=== PATIENT | male | born 1945 | race Caucasian/White ===

== ENCOUNTER 2017-05-17 06:59 | Day surgery (SDC) | payer MEDICARE ==
[~2017-05-17] VITALS: Ht 172.7 cm; Wt 71.7 kg
[~2017-05-17 06:59] MED LIST: /ESOM40CA; ACET500C; AMLO5TAB2 PO; ASPI1TAB PO; ASPI325T; ATOR40TA75 PO; CIPR500T19; DARV100T; FLAG250T; MULT1TAB10 PO; OMEP40CA2 PO; PROC10TA PO; PROCHLORPERAZINE; VICOBULK PO; VITA500T3 PO; [UNRECOGNIZED DRUG - REMARK]
[2017-05-17] MEDS ORDERED: NS 1,000 ML IV ONE (08:00)
[2017-05-17] MEDS ORDERED: LIDOCAINE 2% INJ 100 MG/5 ML SDV (FOR ANES.) As Ordered ONE (08:00)
[2017-05-17] MEDS ORDERED: PROPOFOL 200 MG/20 ML VIAL As Ordered ONE ×2 (08:00→08:58)
--- NOTE | 2017-05-17 08:35 | ROOR ---
Patient Name: Juan Bowens Procedure Date: 05/17/2017 8:17 AM Date of : 1945 Age: 72 Room: [facility] Gender: Male Note Status: Finalized Procedure: Upper GI endoscopy Indications: Suspected esophageal reflux Providers: Sanjiv Gray Jr, MD Referring MD: Omid Beebe Md Requesting Provider: Medicines: Propofol per Anesthesia Complications: No immediate complications. Procedure: Pre-Anesthesia Assessment: - Prior to the procedure, a History and Physical was performed, and patient medications and allergies were reviewed. The patient is competent. The risks and benefits of the procedure and the sedation options and risks were discussed with the patient. All questions were answered and informed consent was obtained. Patient identification and proposed procedure were verified by the physician and the nurse in the pre-procedure area and in the procedure room. Mental Status Examination: alert and oriented. Airway Examination: normal oropharyngeal airway and neck mobility. Respiratory Examination: clear to auscultation. CV Examination: normal. ASA Grade Assessment: II - A patient with mild systemic disease. After reviewing the risks and benefits, the patient was deemed in satisfactory condition to undergo the procedure. The anesthesia plan was to use moderate sedation / analgesia (conscious sedation). Immediately prior to administration of medications, the patient was re-assessed for adequacy to receive sedatives. The heart rate, respiratory rate, oxygen saturations, blood pressure, adequacy of pulmonary ventilation, and response to care were monitored throughout the procedure. The physical status of the patient was re-assessed after the procedure. The Endoscope was introduced through the mouth, and advanced to the second part of duodenum. The upper GI endoscopy was accomplished without difficulty. The patient tolerated the procedure well. Findings: The upper third of the esophagus, middle third of the esophagus and lower third of the esophagus were normal. A small hiatal hernia was present. The cardia, gastric fundus and gastric body were normal. Diffuse moderately erythematous mucosa without bleeding was found in the gastric antrum and in the prepyloric region of the stomach. Biopsies were taken with a cold forceps for histology. The duodenal bulb, first portion of the duodenum and second portion of the duodenum were normal. Impression: - Normal upper third of esophagus, middle third of esophagus and lower third of esophagus. - Small hiatal hernia. - Normal cardia, gastric fundus and gastric body. - Erythematous mucosa in the antrum and prepyloric region of the stomach. Biopsied. - Normal duodenal bulb, first portion of the duodenum and second portion of the duodenum. Recommendation: - Discharge patient to home (ambulatory). Sanjiv Gray MD Sanjiv Gray Jr, MD 05/17/2017 8:35:03 AM This report has been signed electronically. Number of Addenda: 0 Note Initiated On: 05/17/2017 8:17 AM Estimated Blood Loss: Estimated blood loss: none.
--- NOTE | 2017-05-17 08:54 | ROOR ---
Patient Name: Juan Bowens Procedure Date: 05/17/2017 8:18 AM Date of : 1945 Age: 72 Room: [facility] Gender: Male Note Status: Finalized Procedure: Colonoscopy Indications: High risk colon cancer surveillance: Personal history of colonic polyps Providers: Sanjiv Gray Jr, MD Referring MD: Omid Beebe Md Requesting Provider: Medicines: Propofol per Anesthesia Complications: No immediate complications. Procedure: Pre-Anesthesia Assessment: - Prior to the procedure, a History and Physical was performed, and patient medications and allergies were reviewed. The patient is competent. The risks and benefits of the procedure and the sedation options and risks were discussed with the patient. All questions were answered and informed consent was obtained. Patient identification and proposed procedure were verified by the physician and the nurse in the pre-procedure area and in the procedure room. Mental Status Examination: alert and oriented. Airway Examination: normal oropharyngeal airway and neck mobility. Respiratory Examination: clear to auscultation. CV Examination: normal. ASA Grade Assessment: II - A patient with mild systemic disease. After reviewing the risks and benefits, the patient was deemed in satisfactory condition to undergo the procedure. The anesthesia plan was to use moderate sedation / analgesia (conscious sedation). Immediately prior to administration of medications, the patient was re-assessed for adequacy to receive sedatives. The heart rate, respiratory rate, oxygen saturations, blood pressure, adequacy of pulmonary ventilation, and response to care were monitored throughout the procedure. The physical status of the patient was re-assessed after the procedure. The Colonoscope was introduced through the anus and advanced to the ileocecal valve. The colonoscopy was performed without difficulty. The patient tolerated the procedure well. Findings: Four polyps were found in the transverse colon and ascending colon. The polyps were diminutive in size. These polyps were removed with a hot snare. Resection and retrieval were complete. The rectum, cecum, appendiceal orifice, ileocecal valve and anastomosis appeared normal. Impression: - Four diminutive polyps in the transverse colon and in the ascending colon, removed with a hot snare. Resected and retrieved. - The rectum, cecum, appendiceal orifice, ileocecal valve and colonic anastomosis are normal. Recommendation: - Discharge patient to home (ambulatory). - Repeat colonoscopy in 5 years for surveillance. Sanjiv Gray MD Sanjiv Gray Jr, MD 05/17/2017 8:53:31 AM This report has been signed electronically. Number of Addenda: 0 Note Initiated On: 05/17/2017 8:18 AM Estimated Blood Loss: Estimated blood loss: none.
[2017-05-17 09:15] VITALS: BP 124/85
== END 2017-05-17 09:29 | disposition home or self-care (01) ==
LOC: M OPP 06:59
PROVIDERS: ATTEND Surgery
DX: Z12.11 Encounter for screening for malignant neoplasm of colon (principal); Z86.010 Personal history of colon polyps; D12.3 Benign neoplasm of transverse colon; D12.2 Benign neoplasm of ascending colon; Z98.0 Intestinal bypass and anastomosis status; K21.9 Gastro-esophageal reflux disease without esophagitis; K31.89 Other diseases of stomach and duodenum; K44.9 Diaphragmatic hernia without obstruction or gangrene; I10 Essential (primary) hypertension; E78.5 Hyperlipidemia, unspecified; Z87.19 Personal history of other diseases of the digestive system; R12 Heartburn; M19.90 Unspecified osteoarthritis, unspecified site; M54.9 Dorsalgia, unspecified; Z96.641 Presence of right artificial hip joint; Z88.5 Allergy status to narcotic agent; Z91.018 Allergy to other foods; Z91.013 Allergy to seafood; Z91.048 Other nonmedicinal substance allergy status; Z79.82 Long term (current) use of aspirin; Z79.899 Other long term (current) drug therapy

== ENCOUNTER → 2017-05-23 | Outpatient (CLI) | payer OTHER, MEDICARE ==
--- NOTE | 2017-05-30 18:15 | REP ---
PET/CT: History: Diagnosing other diseases of the spleen. Comparisons: Comparison is made with CT study of the abdomen from the [facility] in [place] dated November 28, 2016. This is reported as showing a low-density lesion in the spleen. This was not felt to be consistent with typical splenic hemangioma. Also reviewed are remote prior CT studies of the abdomen and pelvis from our facility dated October 01, 2014 and July 02, 2009. TECHNIQUE: 47 minutes following the intravenous injection of a 11.0 mCi dose of F-18 FDG, three-dimensional PET scintigraphy is acquired from the skull base to the proximal thighs. Triplanar noncontrast CT scanning is acquired through the same anatomic range for attenuation correction, and image registration with scan parameters optimized to minimize radiation exposure to the patient. PET scintigraphy and CT datasets were fused and displayed on a workstation with multiplanar and projection display capability. PET/CT Findings: There is no discernible hypermetabolic uptake within the spleen. The low density lesion seen on CT is visualized although ill-defined. No abnormal FDG accumulation is seen. No abnormal hypermetabolic uptake is seen within the liver. There are low-density liver lesions consistent with cysts. No abnormal adrenal hypermetabolic uptake is seen. No abnormal uptake is seen within the abdomen or pelvis. No abnormal hypermetabolic uptake is seen in the thorax. Head and neck soft tissues are unremarkable. No abnormal pulmonary parenchymal uptake is seen. No abnormal skeletal uptake is observed. On review of the prior CT studies I find that the splenic lesion was preexisting. It measured 7 mm and was fairly sharply circumscribed in June of 2009. On the CT study from October 01, 2014, the lesion measures 2.4 cm. On the most recent CT of November 28, 2016 it measures 1.9 cm to my measurement. It is most conspicuous on postcontrast images and is difficult to measure on today's noncontrast accompanying CT study. It does not appear larger and is probably smaller than it was on the October 01, 2014 study. This stability combined with lack of discernible FDG accumulation is consistent with a benign splenic lesion. Impression: Negative PET scintigraphy. No abnormal splenic uptake is seen. Splenic lesion seen on recent CT study is stable since 2014 and considered benign. No abnormal hypermetabolic uptake is seen. Signed by Samuel Taylor MD 05/31/2017 08:03 A
== END ==
LOC: M PLARAD 10:20
DX: D73.89 Other diseases of spleen (principal)
CPT/HCPCS: 78815; A9552

== ENCOUNTER → 2017-06-12 | Outpatient (REF) | payer MEDICARE ==
[2017-06-19 14:12] LABS: ACETYLCHOLINE RCPTOR BINDING A 7.26 nmol/L (0.00-0.24)
[2017-06-19 14:12] LABS: ACETYLCHOLINE RCPTOR BLOCK AB 43 % (0-25); ACETYLCHOLINE RCPTOR MODULATIN 47 % (0-20); ANTINUCLEAR ANTIBODIES DIRECT Negative (Negative); Lyme Disease IgG/IgM Antibodie <0.91 ISR (0.00-0.90); Lyme Disease IgM Ab Quantitati <0.80 index (0.00-0.79)
== END ==
LOC: M LAB REF 11:49
DX: R53.1 Weakness (principal)
CPT/HCPCS: 86038

== ENCOUNTER → 2017-07-03 | Outpatient (CLI) | payer MEDICARE ==
[~2017-07-03] MED LIST changes: -/ESOM40CA; -ACET500C; -AMLO5TAB2 PO; -ASPI1TAB PO; -ASPI325T; -ATOR40TA75 PO; -CIPR500T19; -DARV100T; -FLAG250T; +ISOVUE-370 76% 100ML VIAL (Q9967) As Ordered; -MULT1TAB10 PO; -OMEP40CA2 PO; -PROC10TA PO; -PROCHLORPERAZINE; -VICOBULK PO; -VITA500T3 PO; -[UNRECOGNIZED DRUG - REMARK]
== END ==
LOC: M RAD 09:11
DX: G70.01 Myasthenia gravis with (acute) exacerbation (principal); C37 Malignant neoplasm of thymus
CPT/HCPCS: Q9967

== ENCOUNTER 2018-11-14 18:34 | Inpatient (IN) | payer MEDICARE ==
[~2018-11-14] VITALS: Ht 172.7 cm; Wt 76.4 kg
[~2018-11-14 18:34] MED LIST changes: +ACET500C; +AMLO5TAB2 PO; +ASPI325T; +ASPI81TA26 PO; +ATOR40TA75 PO; +CIPR500T19; +DARV100T; +FLAG250T; -ISOVUE-370 76% 100ML VIAL (Q9967) As Ordered; +MULT1TAB10 PO; +NEXI1CAP3; +OMEP40CA2 PO; +PROC10TA4 PO; +PROCHLORPERAZINE; +VICOBULK PO; +VITA500T3 PO; +[UNRECOGNIZED DRUG - REMARK]
[2018-11-14] MEDS ORDERED: CELL500T PO (18:53)
[2018-11-14] MEDS ORDERED: PYRI60TA2 PO (18:53)
[2018-11-14 19:33] LABS: BASO % 0.4 % (0.0-1.0); EOS # 0.1 10^3/uL (0.0-0.50); EOS % 0.8 % (0.0-3.0); HEMATOCRIT 42.5 % (42.0-52.0); HEMOGLOBIN 14.6 g/dl (13.5-17.5); LYMPH # 0.7 10^3/uL (1.5-4.5); LYMPH % 7.5 % (24.0-44.0); MEAN CORPUSCULAR HEMOGLOBIN 31.3 pg (27.0-33.0); MEAN CORPUSCULAR HGB CONC 34.4 g/dl (32.0-36.5); MEAN CORPUSCULAR VOLUME 91.2 fl (80.0-96.0); MONO # 0.4 10^3/uL (0.0-0.8); MONO % 3.8 % (0.0-5.0); NEUTROPHILS # 8.4 10^3/uL (1.8-7.7); NEUTROPHILS % 87.2 % (36.0-66.0); PLATELET COUNT, AUTOMATED 162 10^3/uL (150-450); RED BLOOD COUNT 4.66 10^6/uL (4.30-6.10); WHITE BLOOD COUNT 9.6 10^3/uL (4.0-10.0)
[2018-11-14] MEDS ORDERED: NS 1,000 ML IV ONE (19:45)
[2018-11-14] MEDS ORDERED: ONDANSETRON 4MG/2ML VIAL (J2405) IV ONE (19:45)
[2018-11-14 19:53] LABS: CPK CREATINE PHOSPHOKINASE 137 U/L (39-308); MB/CK RELATIVE INDEX 1.68 (< OR =4); TROPONIN I < 0.02 NG/ML (< 0.10)
[2018-11-14 19:57] LABS: ALBUMIN 4.2 GM/DL (3.2-5.2); ALT/SGPT 31 U/L (12-78); BILIRUBIN,DIRECT 0.2 MG/DL (0.0-0.2); BILIRUBIN,TOTAL 0.7 MG/DL (0.2-1.0); BLOOD UREA NITROGEN 12 MG/DL (7-18); CALCIUM LEVEL 9.3 MG/DL (8.8-10.2); CARBON DIOXIDE LEVEL 24 MEQ/L (21-32); CHLORIDE LEVEL 107 MEQ/L (98-107); GLOMERULAR FILTRATION RATE > 60.0 (>42); GLUCOSE, FASTING 111 MG/DL (70-100); LIPASE 229 U/L (73-393); POTASSIUM SERUM 4.2 MEQ/L (3.5-5.1); SODIUM LEVEL 139 MEQ/L (136-145); TOTAL PROTEIN 6.5 GM/DL (6.4-8.2)
[2018-11-14] MEDS: GASTROGRAFIN SOLUTION 30ML (Q9963) PO SCH ×2 (21:08→21:26)
[2018-11-14] MEDS ORDERED: GASTROGRAFIN SOLUTION 30ML (Q9963) PO SCH (21:30)
[2018-11-14] MEDS ORDERED: ISOVUE-370 76% 100ML VIAL (Q9967) As Ordered ONE (22:05)
--- NOTE | 2018-11-15 00:32 | REPVR ---
EXAM: CT Abdomen and Pelvis With Contrast EXAM DATE/TIME: 11/14/2018 10:32 PM CLINICAL HISTORY: 73 years old, male; Abdominal pain; Localized; Left Lower Quadrant (LLQ); Additional Info: LLQ pain TECHNIQUE: Imaging protocol: Axial computed tomography images of the abdomen and pelvis with intravenous contrast. Coronal and sagittal reformatted images were created and reviewed. Radiation optimization: All CT scans at this facility use at least one of these dose optimization techniques: automated exposure control; mA and/or kV adjustment per patient size (includes targeted exams where dose is matched to clinical indication); or iterative reconstruction. Contrast material: ISOVUE 370; Contrast volume: 100 ml; Contrast route: IV; COMPARISON: CT ABD PELVIS WITH CONTRAST 10/01/2014 9:10 PM FINDINGS: Lungs: Dependent atelectasis in the lung. Coronary arteries: Mild coronary artery calcification. ABDOMEN: Liver: Multiple circumscribed hypodense lesions in the liver. Largest hepatic cyst measures 4.3 cm in the anterior right hepatic lobe. Gallbladder and bile ducts: Few gallstones in the gallbladder. No gallbladder wall thickening. No biliary ductal dilatation. Pancreas: Pancreatic duct measures 5 mm in diameter. No pancreatic mass evident. Spleen: No splenomegaly. Ill-defined hypodense lesion in the spleen measuring up to 1.5 cm in diameter. Adrenals: Normal. No mass. Kidneys and ureters: No hydronephrosis bilaterally. Circumscribed hypodense lesions in the lower pole of the left kidney measuring up to 1.6 cm. Smaller hypodense lesion in the lower pole of the right kidney. Stomach and bowel: Moderate stool in the colon. No abnormal bowel dilatation. No abnormal bowel wall thickening. Status post sigmoid colon resection. Colonic diverticulosis without diverticulitis. Appendix: Appendix is normal. PELVIS: Bladder: Unremarkable as visualized. Reproductive: Prostate is mildly enlarged. ABDOMEN and PELVIS: Intraperitoneal space: Normal. No free air. No significant fluid collection. Bones/joints: Mild degenerative spine. Stat as post right hip replacement. No acute fracture. Soft tissues: Unremarkable. Vasculature: Moderate atherosclerotic disease. No aortic aneurysm. Lymph nodes: Normal. No enlarged lymph nodes. IMPRESSION: 1. Moderate stool in the colon. 2. Colonic diverticulosis without diverticulitis. 3. Pancreatic ductal dilatation. No change from prior. 4. Bilateral renal cysts. No followup is necessary. 5. Hepatic cysts. No followup is necessary. 6. Ill-defined hypodense lesion in the spleen. Unchanged from prior. No followup is necessary. 7. Cholelithiasis without evidence of acute cholecystitis. Unchanged from prior. COMMENT: Consistent with the [employer]'s Incidental Findings Committee Report (J Am Jj Radiol 2010): Unless the patient's specific circumstances suggest otherwise, any liver lesion 0.5 cm or less, any cystic kidney lesion less than 1.0 cm, and/or any adrenal lesion 1.0 cm or less not otherwise characterized in this report as possessing suspicious or indeterminate imaging features is/are highly likely to be benign and do not require follow-up imaging or biopsy. Electronically signed by: Ne Salcido On 11/15/2018 00:32:05 AM
[2018-11-15 00:48] LABS: CPK CREATINE PHOSPHOKINASE 129 U/L (39-308); MB/CK RELATIVE INDEX 1.94 (< OR =4); TROPONIN I < 0.02 NG/ML (< 0.10)
[2018-11-15] MEDS ORDERED: DOBUTamine HCL 500,000 MCG in APPROPRIATE DILUENT 1 EA IV SCH (01:00)
--- NOTE | 2018-11-15 01:10 | REPVR ---
EXAM: XR Chest, 1 View EXAM DATE/TIME: 11/15/2018 12:29 AM CLINICAL HISTORY: 73 years old, male; Signs and Symptoms; Other: weakness, vomiting; Additional Info: syncope TECHNIQUE: Imaging protocol: XR of the chest, 1 view. COMPARISON: CT Chest with contrast 07/03/2017 9:55 AM FINDINGS: Tubes, catheters and devices: There are multiple overlying electrocardiograph leads. Lungs: No infiltrate. Pleural space: Unremarkable. No pleural effusion. No pneumothorax. Heart/Mediastinum: Unremarkable. No cardiomegaly. Bones/joints: Chronic fracture of the left clavicle. Status post left rotator cuff surgery. IMPRESSION: No acute infiltrate. Electronically signed by: Ne Salcido On 11/15/2018 01:10:22 AM
[2018-11-15] MEDS ORDERED: VITMTA PO (01:35)
[2018-11-15] MEDS ORDERED: OMEP-221 PO (01:35)
[2018-11-15] MEDS ORDERED: ROSU40TA3 PO (01:35)
[2018-11-15] MEDS ORDERED: AMLO5TAB6 PO (01:35)
[2018-11-15] MEDS ORDERED: ONDANSETRON 4MG/2ML VIAL (J2405) IV ONE (02:15)
[2018-11-15] MEDS ORDERED: NS 1,000 ML IV SCH (02:17)
[2018-11-15] MEDS ORDERED: ISOVUE-300 61% 50ML VIAL (Q9967) As Ordered ONE (03:14)
[2018-11-15] MEDS ORDERED: AMIODARONE 150MG/3ML INJ (J0282) As Ordered ONE (03:14)
[2018-11-15] MEDS ORDERED: LIDOCAINE 1% SDV INJ 30 ML VIAL As Ordered ONE (03:14)
[2018-11-15] MEDS ORDERED: MIDAZOLAM INJ 2 MG/2 ML VIAL (J2250) As Ordered ONE (03:36)
[2018-11-15] MEDS ORDERED: LIDOCAINE 2% INJ 100 MG/5 ML SDV (FOR ANES.) As Ordered ONE (03:37)
[2018-11-15] MEDS ORDERED: PROPOFOL 200 MG/20 ML VIAL As Ordered ONE ×3 (03:37→05:30)
[2018-11-15] MEDS ORDERED: fentaNYL 100 MCG/2 ML INJECTION (J3010) As Ordered ONE (03:37)
[2018-11-15] MEDS ORDERED: EPINEPHrine INJ 1 MG/ML 1ML AMP As Ordered ONE (03:37)
--- NOTE | 2018-11-15 03:53 | HPEPDOC ---
[facility] Medical History & Physical Date of Admission Nov 15, 2018 Date of Service: Nov 15, 2018 History and Physical CHIEF COMPLAINT: Nausea/vomiting HISTORY OF PRESENT ILLNESS: Patient is a 73-year-old male past medical history of myasthenia gravis, diverticulosis/diverticulitis, GERD presented to ER with complaints of nausea and left-sided abdominal pain. In ER, patient was found to have 2 episodes of pauses/asystole and developed light headedness. Patient reportedly has had episodes of passing out suddenly for a period of time. He denies any other complaints apart from having upset stomach and nausea. Denies any chest pain or SOB. PAST MEDICAL HISTORY: Refer to [facility] PAST SURGICAL HISTORY: R. hip replacement sinus surgery x2 L. hernia repair SOCIAL HISTORY: Social alcohol consumption. Denies tobacco or drug use. FAMILY HISTORY: Unknown ALLERGIES: Please see below. REVIEW OF SYSTEMS: 10 point review of system negative except as stated in HPI HOME MEDICATIONS: Please see below. PHYSICAL EXAMINATION: General: mild distress from nausea Eyes: Normal sclera, EOMI, ADAN HENT: Atraumatic, neck supple, moist mucous membranes Cardiovascular: Normal rate, normal rhythm. Pulmonary: Clear to auscultation b/l, no wheezing GI: Soft, nontender, nondistended Skin: Warm and dry Neuro: CN grossly intact. No focal deficits. Strengths equal b/l. Psych: oriented x 3 LABORATORY DATA: See below. IMAGING: Abdomen/pelvis CT- IMPRESSION: 1. Moderate stool in the colon. 2. Colonic diverticulosis without diverticulitis. 3. Pancreatic ductal dilatation. No change from prior. 4. Bilateral renal cysts. No followup is necessary. 5. Hepatic cysts. No followup is necessary. 6. Ill-defined hypodense lesion in the spleen. Unchanged from prior. No followup is necessary. 7. Cholelithiasis without evidence of acute cholecystitis. Unchanged from prior. CXR- IMPRESSION: No acute infiltrate. MICROBIOLOGY: Please see below. ASSESSMENT AND PLAN: 1. Pauses/Asystole - Multiple episodes of syncope at home, pauses noted in ER. - Evaluated by cardiology at bedside tonight. - Started on Dobutamine drip and to get pacer placement. - Monitor on telemetry. - f/u further cardio recommendations. - monitor and replace electrolytes. - Troponins negative x3. - Obtain ECHO. 2. Nausea w/ abdominal discomfort - Zofran PRN - reported history of GERD and has intermitent upset stomach. - CT scan noted, no acute findings. Moderate stool noted. DVT ppx: HSQ Code status: Full code Vital Signs Vital Signs Date Time Temp Pulse Resp B/P (MAP) Pulse Ox O2 Delivery O2 Flow Rate FiO2 11/15/18 03:20 95 18 134/63 (86) 99 Nasal Cannula 2.0 11/15/18 02:15 98.0 Laboratory Data Labs 24H Laboratory Tests 2 11/14/18 18:59: Urine Color YELLOW, Urine Appearance CLEAR, Urine pH 7.0, Urine Specific [place] 1.011, Urine Protein NEGATIVE, Urine Glucose (UA) NEGATIVE, Urine Ketones 1+H, Urine Blood NEGATIVE, Urine Nitrite NEGATIVE, Urine Bilirubin NEGATIVE, Urine Urobilinogen 0.2, Urine Leukocyte Esterase NEGATIVE, Urine WBC (Auto) 0, Urine RBC (Auto) 5H, Urine Hyaline Casts (Auto) 0, Urine Bacteria (Auto) NEGATIVE, Urine Squamous Epithelial Cells 0, Urine Mucus (Auto) SMALL, Urine Sperm (Auto) 11/14/18 19:20: Immature Granulocyte % (Auto) 0.3, White Blood Count 9.6, Red Blood Count 4.66, Hemoglobin 14.6, Hematocrit 42.5, Mean Corpuscular Volume 91.2, Mean Corpuscular Hemoglobin 31.3, Mean Corpuscular Hemoglobin Concent 34.4, Red Cell Distribution Width 12.4, Platelet Count 162, Neutrophils (%) (Auto) 87.2H, Lymphocytes (%) (Auto) 7.5L, Monocytes (%) (Auto) 3.8, Eosinophils (%) (Auto) 0.8, Basophils (%) (Auto) 0.4, Neutrophils # (Auto) 8.4H, Lymphocytes # (Auto) 0.7L, Monocytes # (Auto) 0.4, Eosinophils # (Auto) 0.1, Basophils # (Auto) 0.0, Nucleated Red Blood Cells % (auto) 0.0, Anion Gap 8, Glomerular Filtration Rate > 60.0, C alcium Level 9.3, Aspartate Amino Transf (AST/SGOT) 21, Alanine Aminotransferase (ALT/SGPT) 31, Alkaline Phosphatase 56, Total Bilirubin 0.7, Direct Bilirubin 0.2, Total Creatine Kinase 137, Creatine Kinase MB 2.0, Creatine Kinase MB Relative Index 1.68, Troponin I < 0.02, Total Protein 6.5, Albumin 4.2, Albumin/Globulin Ratio 1.83, Lipase 229 11/15/18 00:08: Total Creatine Kinase 129, Creatine Kinase MB 2.0, Creatine Kinase MB Relative Index 1.94, Troponin I < 0.02 CBC/BMP Laboratory Tests 11/14/18 19:20 Red Blood Count 4.66, Mean Corpuscular Volume 91.2, Mean Corpuscular Hemoglobin 31.3, Mean Corpuscular Hemoglobin Concent 34.4, Red Cell Distribution Width 12.4, Neutrophils (%) (Auto) 87.2 H, Lymphocytes (%) (Auto) 7.5 L, Monocytes (%) (Auto) 3.8, Eosinophils (%) (Auto) 0.8, Basophils (%) (Auto) 0.4, Neutrophils # (Auto) 8.4 H, Lymphocytes # (Auto) 0.7 L, Monocytes # (Auto) 0.4, Eosinophils # (Auto) 0.1, Basophils # (Auto) 0.0 Home Medications Scheduled Amlodipine Besylate (Amlodipine Besylate) 5 Mg Tablet, 5 MG PO DAILY 1200 Multivitamins (Thera M Plus Tablet) 1 Each Tablet, 1 TAB PO DAILY 1200 Mycophenolate Mofetil (Cellcept) 500 Mg Tablet, 1,000 MG PO BID 0600, 1500 Omeprazole (Omeprazole) 40 Mg Capsule.dr, 40 MG PO DAILY 1200 Pyridostigmine Phoenix (Pyridostigmine Phoenix) 60 Mg Tablet, 60 MG PO BID 0600, 1500 Rosuvastatin Calcium (Rosuvastatin Calcium) 40 Mg Tablet, 40 MG PO DAILY 1200 Scheduled PRN Prochlorperazine Maleate (Prochlorperazine Maleate) 10 Mg Tab, 10 MG PO Q6H PRN for NAUSEA Allergies Coded Allergies: WOOL (FABRIC) (Verified Allergy, Intermediate, RASH,PRURITIS, 09/11/06) codeine (Verified Allergy, Mild, lethargy, 11/14/18) FISH (Verified Allergy, Unknown, 09/11/06) Mushroom (Verified Allergy, Unknown, 09/11/06) SEAFOOD (Verified Allergy, Unknown, 05/09/17) A-FIB/CHADSVASC A-FIB History Current/History of A-Fib/PAF?: No ARRIETA,CANH T. MD Nov 15, 2018 03:53
[2018-11-15] MEDS ORDERED: ONDANSETRON 4MG/2ML VIAL (J2405) As Ordered ONE (04:19)
[2018-11-15] MEDS ORDERED: ceFAZolin 2 GM/D5W 50 ML IV BAG (J0690 PER 500MG) As Ordered ONE (04:21)
[2018-11-15] MEDS ORDERED: PROCHLORPERAZINE 5 MG TAB (S0183) PO PRN (04:30)
[2018-11-15] MEDS ORDERED: fentaNYL 100 MCG/2 ML INJECTION (J3010) IV PRN (06:00)
[2018-11-15] MEDS ORDERED: KETOROLAC TROMETHAMINE 10 MG TAB PO PRN (06:00)
[2018-11-15] MEDS ORDERED: LR 1,000 ML IV SCH (06:00)
[2018-11-15] MEDS ORDERED: PERCOCET 5MG/325MG TAB PO PRN (06:00)
[2018-11-15] MEDS ORDERED: ONDANSETRON 4MG/2ML VIAL (J2405) IV PRN (06:00)
[2018-11-15 06:27] VITALS: BP 160/76
[2018-11-15] MEDS: ACETAMINOPHEN TAB 650MG DOSE (2X325MG) PO PRN ×2 (06:40→22:51)
[2018-11-15] MEDS: MYCOPHENOLATE MOFETIL 250 MG CAP (J7517) PO SCH ×2 (07:07→16:26)
[2018-11-15] MEDS: PYRIDOSTIGMINE 60 MG TAB PO SCH ×2 (07:07→16:26)
--- NOTE | 2018-11-15 07:17 | RO ---
DATE OF PROCEDURE: 11/15/2018 IMPLANTATION OF PERMANENT DUAL CHAMBER PACEMAKER: IMPLANTING LASER BEAM CUTTER: Dr. Jaxon Frerara ANESTHESIOLOGIST: Dr. Pelaez PREOPERATIVE DIAGNOSIS: Recurrent near syncope / syncope - sinus arrest with cardiac arrest / asystole. POSTOPERATIVE DIAGNOSIS: Recurrent near syncope / syncope - sinus arrest with cardiac arrest / asystole. TYPE OF ANESTHESIA: Monitored local anesthesia. DESCRIPTION OF PROCEDURE: Following informed consent with the patient fasting having received Ancef 2 grams IV premedication, he was taken to the operating theater. Numerous skin electrodes were applied to facilitate continuous electrocardiographic monitoring. The left subclavian region was prepped and draped in usual fashion and the skin was infiltrated with 1% Xylocaine. The left axillary vein was catheterized using a micropuncture technique and the 5-cm linear incision was made several centimeters below and parallel to the left clavicle. Dissection was carried down to the level of pectoralis fascia and pocket was fashioned below the level of the incision line. Two bipolar screw-in active fixation steroid eluding pending pacing leads were then positioned to the right ventricular apex and high right atrium. Because of suboptimal pacing thresholds we actually had to reposition the right atrial lead six separate times prior to settling for the current location. Right ventricular lead ([employer] model number LPA 1200m/58 serial number [id number]) measurements were: Stimulation threshold 0.6, V / 0.4 ms/impedance 880 ohms. R-wave amplitude measured 23.2 mV. The atrial lead ([employer] model number IFF4079B/[id number], serial number [id number]) measurements were pacing threshold 2.8, V / 0.8 ms/impedance 542 ohms. The P-wave amplitude measured 1.9 small mV. There remained considerable injury current on his atrial lead and we are cautiously optimistic that this atrial pacing threshold will decrease in the next few hours. These leads were then secured in position with sleeves sutured at their insertion site. They were then connected to a dual-chamber pulse generator ([employer] model number [id number], serial number [id number]) and appropriate, DDD pacing was documented. This device is MRI compatible. The pacemaker was placed in the pocket and secured in position with a suture through the upper right-hand corner of the epoxy header. The subcutaneous tissues were approximated using a running chromic suture and skin was closed using kanu. A dry dressing was applied. The patient was returned to the recovery room in good condition. No apparent complications but more prolonged procedure in light of suboptimal right atrial sites for pacing. ESTIMATED BLOOD LOSS: 10 mL. Our plan is to monitor him on telemetry for the next 24 hours and he will receive an additional three doses of Ancef IV every 8 hours. We are still confident he will be able to be discharged tomorrow morning. His customary medications will be resumed at this time.
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
[2018-11-15 08:00] VITALS: BP 134/68
[2018-11-15] MEDS ORDERED: ENOXAPARIN 40 MG/0.4 ML SYRINGE (J1650) SC SCH (09:00)
[2018-11-15] MEDS: amLODIPine 5 MG TAB PO SCH ×2 (09:07→20:50)
--- NOTE | 2018-11-15 09:32 | REP ---
PORTABLE CHEST: AP portable view of the chest is performed and compared to prior exam of the same day. There has been placement of a left dual lead pace maker with atrial and ventricular leads apparently in good position. There is no pneumothorax. The remainder of the study is unchanged. Electronically Signed by Rajiv Christiansen MD 11/18/2018 05:02 P
[2018-11-15 12:00] VITALS: BP 139/65
[2018-11-15] MEDS: MULTIVITAMINS/MINERALS THERAP 1 TAB PO SCH (12:00)
[2018-11-15] MEDS ORDERED: amLODIPine 5 MG TAB PO SCH (12:00)
[2018-11-15] MEDS: PANTOPRAZOLE 40MG INJ (PROTONIX) (C9113) IV SCH (12:01)
[2018-11-15] MEDS: ROSUVASTATIN 10 MG TAB (CRESTOR) PO SCH (12:01)
[2018-11-15] MEDS: ceFAZolin SOD 1 GM in D5W MINI-BAG PLUS 50 ML IV SCH ×2 (12:01→20:51)
[2018-11-15 16:00] VITALS: BP 136/63
--- NOTE | 2018-11-15 19:44 | ECHO ---
DATE OF PROCEDURE: 11/15/2018 Date of : 1945 Age: 73 Gender: Male Height: 68 inches Weight: 167 pounds Body surface area: 1.9 meters squared Inpatient: Intensive care unit (ICU), room 3209 REFERRING PHYSICIAN: Dr. Miryam Dotson INDICATION: Syncope/abnormal EKG. MEASUREMENTS: 2D Measurements: RV: 3.8 cm LV: 5.3 cm Septum: 1.1 cm Posterior wall: 1.1 cm Aortic root: 3.7 cm LA: 3.9 cm LVEF: 65% Doppler Measurements: AV: 1.5 meters per second LVOT: 0.97 meters per second LVOT diameter: 2.1 cm MV-E: 62, A: 78, EA ratio: 0.8 Early mitral deceleration time: 239 milliseconds E prime: 5.9, A prime: 8.8, E/E prime ratio: 10.5 Pulmonary capillary wedge pressure: 13.5 mmHg PV: 0.8 meters per second Pulmonary artery acceleration time: 116 milliseconds RVSP: 32 mmHg IVC: 1.8 cm COMMENTS: Underlying atrially paced rhythm with spontaneous AV conduction and narrow QRS complexes. M-mode and two-dimensional echocardiography was performed with pulsed, continuous wave, color flow and tissue Doppler studies. Left ventricular wall thickness upper limits of normal with normal wall motion. Left atrial size upper limits of normal with Doppler evidence of an impairment of left ventricular (LV) diastolic function and current estimated mean left atrial pressure upper limits of normal. Normal right heart chamber sizes and motion with Doppler evidence of mild pulmonary hypertension. Mild aortic valvular sclerosis without stenosis yet mild-moderate insufficiency. Mild mitral annular calcification with very mild insufficiency. Normal appearing tricuspid valve with very mild insufficiency. Normal aortic root size. Pacing leads could be visualized traversing right heart structures but no other intracardiac mass. No pericardial effusion.
[2018-11-15 20:00] VITALS: BP 148/65
--- NOTE | 2018-11-15 20:17 | ECGEPIP ---
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 Pseudofusion (QRS complexes are related to spontaneous AV conduction). Pacer new from 11/14/18. Somewhat prominent precordial voltage with lateral ST/T-wave abnormalities probable LVH. Electronically Signed on 11-15-2018 20:16:50 EDT by Jaxon Ferrara
[2018-11-15 22:48] VITALS: BP 145/65
[2018-11-15] MEDS: ONDANSETRON 4MG/2ML VIAL (J2405) IV PRN (22:51)
[2018-11-16] VITALS (7 sets, daily range): BP systolic 124–151; BP diastolic 60–68
[2018-11-16] MEDS: ceFAZolin SOD 1 GM in D5W MINI-BAG PLUS 50 ML IV SCH (04:58)
[2018-11-16] MEDS: PYRIDOSTIGMINE 60 MG TAB PO SCH ×2 (05:02→14:11)
[2018-11-16] MEDS: MYCOPHENOLATE MOFETIL 250 MG CAP (J7517) PO SCH ×2 (05:02→14:10)
[2018-11-16 05:07] LABS: HEMOGLOBIN 13.4 g/dl (13.5-17.5); MEAN CORPUSCULAR HEMOGLOBIN 30.2 pg (27.0-33.0); MEAN CORPUSCULAR HGB CONC 33.5 g/dl (32.0-36.5); MEAN CORPUSCULAR VOLUME 90.1 fl (80.0-96.0); PLATELET COUNT, AUTOMATED 148 10^3/uL (150-450); RED BLOOD COUNT 4.44 10^6/uL (4.30-6.10); WHITE BLOOD COUNT 8.4 10^3/uL (4.0-10.0)
[2018-11-16 05:27] LABS: BLOOD UREA NITROGEN 17 MG/DL (7-18); CALCIUM LEVEL 8.2 MG/DL (8.8-10.2); CARBON DIOXIDE LEVEL 26 MEQ/L (21-32); CHLORIDE LEVEL 107 MEQ/L (98-107); CREATININE FOR GFR 0.89 MG/DL (0.70-1.30); GLOMERULAR FILTRATION RATE > 60.0 (>42); GLUCOSE, FASTING 112 MG/DL (70-100); SODIUM LEVEL 140 MEQ/L (136-145)
[2018-11-16] MEDS: amLODIPine 5 MG TAB PO SCH (08:14)
--- NOTE | 2018-11-16 08:18 | REP ---
Chest two views HISTORY: Pacemaker insertion Comparison: 11/15/2018 The lungs are clear. The heart is normal in size. The pulmonary vasculature is normal in appearance. The bony structure is intact. A cardiac pacemaker is present. IMPRESSION: No acute disease. Electronically Signed by Dylon Piper MD 11/16/2018 08:10 A
--- NOTE | 2018-11-16 08:20 | ECGEPIP ---
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
[2018-11-16] MEDS ORDERED: ASCORBIC ACID 250 MG TAB PO SCH (09:00)
--- NOTE | 2018-11-16 09:34 | ECGEPIP ---
[facility] - ED Test Date: 2018-11-15 Pat Name: MICHAEL RUSSELL Department: Room: [place] [address] Gender: Male Control Technician: NATANAEL : 1945 Requested By: AMPARO Rosas Order Number: [id number] Reading MD: Tiago Malhotra Measurements Intervals [place] Rate: 61 P: 46 NC: 158 QRS: 3 QRSD: 84 T: 72 QT: 382 QTc: 387 Interpretive Statements SINUS RHYTHM NONSPECIFIC T-WAVE ABNORMALITY Baseline artifact likley due to electrical device- previous tracing done 11-15-18 showed v-pacing with atrial tracking Electronically Signed on 11-16-2018 9:34:30 EDT by Tiago Malhotra
[2018-11-16] MEDS: ONDANSETRON 4MG/2ML VIAL (J2405) IV PRN (10:24)
[2018-11-16] MEDS: ROSUVASTATIN 10 MG TAB (CRESTOR) PO SCH (13:04)
[2018-11-16] MEDS: MULTIVITAMINS/MINERALS THERAP 1 TAB PO SCH (13:04)
[2018-11-16] MEDS: PANTOPRAZOLE 40MG INJ (PROTONIX) (C9113) IV SCH (13:04)
[2018-11-16] MEDS ORDERED: ACET-841 PO (13:18)
[2018-11-16] MEDS ORDERED: VITA1TAB23 PO (13:18)
[2018-11-16] MEDS ORDERED: KETO10TAB PO (13:19)
--- NOTE | 2018-11-18 12:41 | DS.PDOC ---
Discharge Summary General Date of Admission Nov 15, 2018 at 02:14 Date of Discharge 11/16/18 Discharge Summary PROCEDURES PERFORMED DURING STAY: PPM placement DISCHARGE DIAGNOSES: Presyncope and Syncopal episodes due to Recurrent episodes of sinus pauses and asystole PPM placement Viral GI infection / symptoms due to asystole Myasthenia gravis. Hypertension Hypercholesterolemia degenerative joint disease. COMPLICATIONS/CHIEF COMPLAINT: Cardiac Asystole. HISTORY OF PRESENT ILLNESS: Please see history and physical HOSPITAL COURSE: Patient is a 73-year-old male past medical history of myasthenia gravis, diverticulosis/diverticulitis, GERD, syncopal episodes for 20 years, presented to ER with complaints of nausea , dry heaves and left-sided abdominal pain. In ER, patient was found to have 2 episodes of sinus pauses/asystole and developed light headedness. Pauses/Asystole Multiple episodes of syncope at home, pauses noted in ER. Had dual chamber PPM placed on 11/15/18 Nausea w/ abdominal discomfort CT abdomen negative could be GERD or viral GI infection These symptoms could also be due to episodes of asystole these have resolved Myasthenia gravis continue home meds unfortunately patient cannot use [employer] with pacemaker. DISCHARGE MEDICATIONS: Please see below. ALLERGIES: Please see below. PHYSICAL EXAMINATION ON DISCHARGE: VITAL SIGNS: Please see below. General: mild distress from nausea Eyes: Normal sclera, EOMI, ADAN HENT: Atraumatic, neck supple, moist mucous membranes Cardiovascular: Normal rate, normal rhythm. Pulmonary: Clear to auscultation b/l, no wheezing GI: Soft, nontender, nondistended Skin: Warm and dry Neuro: CN grossly intact. No focal deficits. Strengths equal b/l. Psych: oriented x 3 LABORATORY DATA: Please see below. ACTIVITY: [As tolerated]. DIET: As tolerated DISCHARGE PLAN: Home DISCHARGE INSTRUCTIONS: Follow up with Dr Ferrara in 1 week for staple removal follow up with Dr ferrara in 1 month for pacemaker check. DISCHARGE CONDITION: [Stable]. TIME SPENT ON DISCHARGE: 45 minutes. Vital Signs/I&Os Vital Signs Date Time Temp Pulse Resp B/P (MAP) Pulse Ox O2 Delivery O2 Flow Rate FiO2 11/16/18 10:00 60 18 128/62 (84) 96 11/16/18 08:00 98.5 11/16/18 04:00 2.0 11/15/18 03:20 Nasal Cannula I&O- Last 24 Hours up to 6 AM 11/16/18 06:00 Intake Total 1540 ml Output Total 725 ml Balance 815 ml Laboratory Data Labs 24H Laboratory Tests 2 11/16/18 04:45: Nucleated Red Blood Cells % (auto) 0.0, Anion Gap 7L, Glomerular Filtration Rate > 60.0, Blood Urea Nitrogen 17, Creatinine 0.89, Sodium Level 140, Potassium Level 4.0, Chloride Level 107, Carbon Dioxide Level 26, Calcium Level 8.2L CBC/BMP Laboratory Tests 11/16/18 04:45 Red Blood Count 4.44, Mean Corpuscular Volume 90.1, Mean Corpuscular Hemoglobin 30.2, Mean Corpuscular Hemoglobin Concent 33.5, Red Cell Distribution Width 12.3, Calcium Level 8.2 L Discharge Medications Scheduled Amlodipine Besylate (Amlodipine Besylate) 5 Mg Tablet, 5 MG PO DAILY, (Reported) 1200 Ascorbic Acid (Vitamin C) 250 Mg Tablet, 250 MG PO BID Multivitamins (Thera M Plus Tablet) 1 Each Tablet, 1 TAB PO DAILY, (Reported) 1200 Mycophenolate Mofetil (Cellcept) 500 Mg Tablet, 1,000 MG PO BID, (Reported) 0600, 1500 Omeprazole (Omeprazole) 40 Mg Capsule.dr, 40 MG PO DAILY, (Reported) 1200 Pyridostigmine [place] (Pyridostigmine [place]) 60 Mg Tablet, 60 MG PO BID, (Reported) 0600, 1500 Rosuvastatin Calcium (Rosuvastatin Calcium) 40 Mg Tablet, 40 MG PO DAILY, (Reported) 1200 Scheduled PRN Acetaminophen (Acetaminophen) 500 Mg Tablet, 1,000 MG PO TIDP PRN for PAIN Ketorolac Tromethamine (Ketorolac Tromethamine) 10 Mg Tablet, 10 MG PO Q6H PRN for PAIN Prochlorperazine Maleate (Prochlorperazine Maleate) 10 Mg Tab, 10 MG PO Q6H PRN for NAUSEA, (Reported) Allergies Coded Allergies: WOOL (FABRIC) (Verified Allergy, Intermediate, RASH,PRURITIS, 09/11/06) codeine (Verified Allergy, Mild, lethargy, 11/14/18) FISH (Verified Allergy, Unknown, 09/11/06) Mushroom (Verified Allergy, Unknown, 09/11/06) SEAFOOD (Verified Allergy, Unknown, 05/09/17) TERRY BALTAZAR MD Nov 16, 2018 11:57
== END 2018-11-16 15:07 | disposition home or self-care (01) | DRG 244 ==
LOC: M ED 18:34 → M ED INP 11-15 02:14 → M ICU 11-15 06:26
PROVIDERS: ADMIT Student in an Organized Health Care Education/Training Program; ATTEND Internal Medicine Nephrology
PROC: 0JH606Z Insertion of Pacemaker, Dual Chamber into Chest Subcutaneous Tissue and Fascia, Open Approach (ICD-10-PCS; 2018-11-15)
PROC: 02HK3JZ Insertion of Pacemaker Lead into Right Ventricle, Percutaneous Approach (ICD-10-PCS; 2018-11-15)
PROC: 02H63JZ Insertion of Pacemaker Lead into Right Atrium, Percutaneous Approach (ICD-10-PCS; principal; 2018-11-15 02:05)
DX: I46.9 Cardiac arrest, cause unspecified (principal); G70.00 Myasthenia gravis without (acute) exacerbation; I11.9 Hypertensive heart disease without heart failure; E78.00 Pure hypercholesterolemia, unspecified; K21.9 Gastro-esophageal reflux disease without esophagitis; K57.30 Diverticulosis of large intestine without perforation or abscess without bleeding; Z79.899 Other long term (current) drug therapy; Z88.5 Allergy status to narcotic agent; Z91.013 Allergy to seafood; Z91.018 Allergy to other foods; Z96.641 Presence of right artificial hip joint

== ENCOUNTER 2018-12-31 15:49 | Emergency (ER) | payer MEDICARE, OTHER ==
[~2018-12-31] VITALS: Ht 172.7 cm; Wt 76.4 kg
[~2018-12-31 15:49] MED LIST changes: +ACET-841 PO; +AMLO5TAB6 PO; +CELL500T PO; +CYAN500T8 PO; +KETO10TAB PO; +OMEP-221 PO; +PYRI60TA2 PO; +ROSU40TA4 PO; +VITA1TAB23 PO; -VITA500T3 PO; +VITMTA PO
[2018-12-31] MEDS ORDERED: HYDR5CR TOP (16:02)
[2018-12-31] MEDS ORDERED: ATOR40TA75 PO (16:02)
[2018-12-31 16:16] LABS: BASO # 0.1 10^3/uL (0.0-0.2); BASO % 0.8 % (0.0-1.0); EOS # 0.2 10^3/uL (0.0-0.50); EOS % 2.4 % (0.0-3.0); HEMATOCRIT 41.2 % (42.0-52.0); HEMOGLOBIN 13.7 g/dl (13.5-17.5); LYMPH # 1.1 10^3/uL (1.5-4.5); LYMPH % 17.9 % (24.0-44.0); MEAN CORPUSCULAR HEMOGLOBIN 30.8 pg (27.0-33.0); MEAN CORPUSCULAR HGB CONC 33.3 g/dl (32.0-36.5); MEAN CORPUSCULAR VOLUME 92.6 fl (80.0-96.0); MONO # 0.5 10^3/uL (0.0-0.8); MONO % 8.4 % (0.0-5.0); NEUTROPHILS # 4.4 10^3/uL (1.8-7.7); NEUTROPHILS % 70.3 % (36.0-66.0); PLATELET COUNT, AUTOMATED 149 10^3/uL (150-450); RED BLOOD COUNT 4.45 10^6/uL (4.30-6.10); WHITE BLOOD COUNT 6.2 10^3/uL (4.0-10.0)
[2018-12-31 16:26] LABS: INR 1.01
[2018-12-31 16:27] LABS: PARTIAL THROMBOPLASTIN TIME 24.9 SECONDS (25.0-38.4)
--- NOTE | 2018-12-31 16:54 | REP ---
HISTORY: Chest pain. COMPARISON: 11/16/2018, a two-view examination. The technique utilized in obtaining the radiograph has magnified the cardiac silhouette and accentuated the interstitial markings. There is a dual chamber bipolar pacemaker device, status quo. The cardiac silhouette is magnified by technique. The lung owen are clear and the pleural angles are sharp. The osseous structures are stable and intact. IMPRESSION: No acute cardiopulmonary disease. There is evidence of cardiomegaly. Electronically Signed by Juan Sheridan DO 01/01/2019 04:19 P
[2018-12-31 16:58] LABS: BLOOD UREA NITROGEN 17 MG/DL (7-18); CALCIUM LEVEL 9.1 MG/DL (8.8-10.2); CARBON DIOXIDE LEVEL 28 MEQ/L (21-32); CHLORIDE LEVEL 110 MEQ/L (98-107); CK-MB VALUE MASS 2.2 NG/ML (<3.6); CPK CREATINE PHOSPHOKINASE 124 U/L (39-308); CREATININE FOR GFR 1.18 MG/DL (0.70-1.30); GLOMERULAR FILTRATION RATE > 60.0 (>42); GLUCOSE, FASTING 98 MG/DL (70-100); MB/CK RELATIVE INDEX 1.77 (< OR =4); POTASSIUM SERUM 3.9 MEQ/L (3.5-5.1); SODIUM LEVEL 144 MEQ/L (136-145); TROPONIN I < 0.02 NG/ML (< 0.10)
[2018-12-31] MEDS ORDERED: ISOVUE-370 76% 100ML VIAL (Q9967) As Ordered ONE (17:27)
--- NOTE | 2018-12-31 18:36 | REPVR ---
EXAM: CT Angiography Chest With Contrast EXAM DATE/TIME: 12/31/2018 5:30 PM CLINICAL HISTORY: 73 years old, male; Chest pain; Additional info: Left chest pain, near syncope R/O pe TECHNIQUE: Imaging protocol: Axial computed tomographic angiography images of the chest with intravenous contrast using CT angiography protocol. Coronal and sagittal reformatted images were created and reviewed. 3D rendering: MIP reconstructed images were created and reviewed. Radiation optimization: All CT scans at this facility use at least one of these dose optimization techniques: automated exposure control; mA and/or kV adjustment per patient size (includes targeted exams where dose is matched to clinical indication); or iterative reconstruction. Contrast material: ISOVUE 370; Contrast volume: 75 ml; Contrast route: IV; COMPARISON: CT Chest with contrast 07/03/2017 9:55 AM FINDINGS: Pulmonary arteries: No focal pulmonary artery filling defect to suggest acute pulmonary embolus. Great vessels off aortic arch: Atherosclerotic calcifications in the coronary vessels. Aorta: Thoracic aorta is tortuous without focal aneurysm or dissection. Lungs: Pulmonary vascular/interstitial pattern does not suggest active pulmonary edema. No suspicious lung mass or air space process. No central endobronchial lesion. Pleural space: No pleural effusion or pneumothorax. Heart: No evidence of pericardial effusion. Mild cardiac enlargement. Liver: Right lobe 5 cm stable simple fluid density hepatic cyst. Spleen: Probable splenic hemangioma 15 mm in size, unchanged since the prior CT. Lymph nodes: No enlarged lymph nodes. Bones/joints: Bony structures show no acute fracture or destructive process. Remote deformities of the upper left ribs. Prior rotator cuff repair, left shoulder Soft tissues: Unremarkable. IMPRESSION: 1. No evidence of acute pulmonary embolus. 2. No other acute or concerning focal intrathoracic abnormality. Electronically signed by: Andrea Graves On 12/31/2018 18:35:30 PM
[2018-12-31 22:31] LABS: CPK CREATINE PHOSPHOKINASE 101 U/L (39-308); MB/CK RELATIVE INDEX 1.98 (< OR =4); TROPONIN I < 0.02 NG/ML (< 0.10)
[2018-12-31 23:15] VITALS: BP 155/70
--- NOTE | 2019-01-01 00:24 | ECGEPIP ---
[facility] [place] - ED Test Date: 2018-12-31 Pat Name: MICHAEL RUSSELL Department: Room: - Gender: Male Manager Commodities: JANEL : 1945 Requested By: TIAGO Adrian Order Number: [id number] Reading MD: Tiago Malhotra Measurements Intervals [place] Rate: 73 P: 64 MD: 162 QRS: 13 QRSD: 91 T: 87 QT: 384 QTc: 425 Interpretive Statements SINUS RHYTHM with one atrially paced beat Nonspecific T wave abnormality Artifact resolved from tracing done 11-15-18 Electronically Signed on 01-01-2019 0:24:29 EDT by Tiago Malhotra
--- NOTE | 2019-01-01 20:32 | ECGEPIP ---
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
== END 2018-12-31 23:35 | disposition home or self-care (01) ==
LOC: M ED 15:49
DX: R07.9 Chest pain, unspecified (principal); R00.1 Bradycardia, unspecified; R06.02 Shortness of breath; G70.00 Myasthenia gravis without (acute) exacerbation; I49.5 Sick sinus syndrome; K21.9 Gastro-esophageal reflux disease without esophagitis; G50.0 Trigeminal neuralgia; Z95.0 Presence of cardiac pacemaker; Z96.641 Presence of right artificial hip joint; Z88.5 Allergy status to narcotic agent; Z91.013 Allergy to seafood; Z91.018 Allergy to other foods; Z91.048 Other nonmedicinal substance allergy status; Z79.899 Other long term (current) drug therapy
CPT/HCPCS: 71045; 71275; 80048; 82550; 82553; 84484; 85025; 85610; 85730; 93005; 93041; 94760; 99285; Q9967

== ENCOUNTER 2019-06-20 15:58 | Observation (INO) | payer OTHER, MEDICARE ==
[~2019-06-20] VITALS: Ht 172.7 cm; Wt 74.8 kg
[~2019-06-20 15:58] MED LIST changes: +HYDR5CR TOP
[2019-06-20 16:35] LABS: BASO % 0.5 % (0.0-1.0); EOS # 0.1 10^3/uL (0.0-0.5); EOS % 1.4 % (0.0-3.0); HEMATOCRIT 43.7 % (42.0-52.0); HEMOGLOBIN 14.3 g/dl (13.5-17.5); LYMPH # 0.7 10^3/uL (1.5-5.0); LYMPH % 9.5 % (24.0-44.0); MEAN CORPUSCULAR HEMOGLOBIN 30.1 pg (27.0-33.0); MEAN CORPUSCULAR HGB CONC 32.7 g/dl (32.0-36.5); MONO # 0.6 10^3/uL (0.0-0.8); MONO % 7.8 % (0.0-5.0); NEUTROPHILS # 6.2 10^3/uL (1.5-8.5); NEUTROPHILS % 80.5 % (36.0-66.0); PLATELET COUNT, AUTOMATED 172 10^3/uL (150-450); RED BLOOD COUNT 4.75 10^6/uL (4.30-6.10); WHITE BLOOD COUNT 7.7 10^3/uL (4.0-10.0)
--- NOTE | 2019-06-20 16:43 | REP ---
Portable chest x-ray: Single view. History: Chest pain. Comparison chest x-ray: December 31, 2018. Findings: There is old post-traumatic deformity of the distal clavicle. There are orthopedic anchors in the left humeral head. A bipolar pacemaker is seen in the right heart via the left side. Monitoring electrodes are noted. Lungs are well inflated and clear. The pleural angles are sharp. Heart size is normal. Pulmonary vasculature is not increased. Impression: Pacemaker in place. No active disease. Electronically Signed by Samuel Taylor MD 06/20/2019 04:34 P
[2019-06-20] MEDS ORDERED: IBUP-1022 PO (16:49)
[2019-06-20] MEDS ORDERED: ROSU40TA4 (16:49)
[2019-06-20 17:06] LABS: ALBUMIN 4.3 GM/DL (3.2-5.2); ALT/SGPT 23 U/L (12-78); BILIRUBIN,DIRECT 0.3 MG/DL (0.0-0.2); BILIRUBIN,TOTAL 0.6 MG/DL (0.2-1.0); BLOOD UREA NITROGEN 20 MG/DL (7-18); CALCIUM LEVEL 9.5 MG/DL (8.8-10.2); CARBON DIOXIDE LEVEL 25 MEQ/L (21-32); CHLORIDE LEVEL 104 MEQ/L (98-107); CK-MB VALUE MASS 1.9 NG/ML (<3.6); CPK CREATINE PHOSPHOKINASE 129 U/L (39-308); CREATININE FOR GFR 1.04 MG/DL (0.70-1.30); FREE T4 1.23 NG/DL (0.76-1.46); GLOMERULAR FILTRATION RATE > 60.0 (>42); GLUCOSE, FASTING 103 MG/DL (70-100); LIPASE 230 U/L (73-393); MB/CK RELATIVE INDEX 1.47 (< OR =4); POTASSIUM SERUM 3.9 MEQ/L (3.5-5.1); SODIUM LEVEL 139 MEQ/L (136-145); TOTAL PROTEIN 6.6 GM/DL (6.4-8.2); TROPONIN I < 0.02 NG/ML (< 0.10)
--- NOTE | 2019-06-20 17:10 | REPVR ---
PROCEDURE INFORMATION: Exam: CT Head Without Contrast Exam date and time: 06/20/2019 4:57 PM Age: 74 years old Clinical indication: Other: High pitched sound assoc w near syncope TECHNIQUE: Imaging protocol: Computed tomography of the head without contrast. Radiation optimization: All CT scans at this facility use at least one of these dose optimization techniques: automated exposure control; mA and/or kV adjustment per patient size (includes targeted exams where dose is matched to clinical indication); or iterative reconstruction. COMPARISON: No relevant prior studies available. FINDINGS: Brain: Normal. No hemorrhage. Unremarkable white matter. No mass effect. Ventricles: Normal. No ventriculomegaly. Bones/joints: Unremarkable. No acute fracture. Sinuses: Visualized sinuses are unremarkable. No fluid levels. Mastoid air cells: Visualized mastoid air cells are well aerated. Soft tissues: Unremarkable. Vasculature: Atherosclerotic changes in the intracranial carotid arteries. IMPRESSION: No acute findings. Electronically signed by: Osmar Hussein On 06/20/2019 17:09:47 PM
[2019-06-20 17:16] LABS: INR 0.99; PROTHROMBIN TIME 12.8 SECONDS (11.8-14.0)
[2019-06-20 17:17] LABS: PARTIAL THROMBOPLASTIN TIME 25.8 SECONDS (25.0-38.4)
[2019-06-20] MEDS ORDERED: ATOR40TA75 PO (17:18)
[2019-06-20] MEDS ORDERED: ACET650T15 PO (17:18)
[2019-06-20] MEDS ORDERED: AMLO10TA5 PO (17:18)
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
[2019-06-20] MEDS ORDERED: PROCHLORPERAZINE 5 MG TAB (S0183) PO PRN (18:45)
[2019-06-20] MEDS ORDERED: ONDANSETRON 4MG/2ML VIAL (J2405) IV ONE (18:45)
[2019-06-20] MEDS ORDERED: ACETAMINOPHEN 650MG ER TAB (TYLENOL ARTHRITIS) PO PRN (18:45)
[2019-06-20] MEDS ORDERED: ISOVUE-370 76% 100ML VIAL (Q9967) As Ordered ONE (19:08)
--- NOTE | 2019-06-20 19:44 | REPVR ---
PROCEDURE INFORMATION: Exam: CT Angiography Neck With Contrast Exam date and time: 06/20/2019 7:18 PM Age: 74 years old Clinical indication: Syncope and collapse; Patient HX: No collapse TECHNIQUE: Imaging protocol: Computed tomography angiography of the neck with intravenous contrast. 3D rendering: MIP and/or 3D reconstructed images were created by the technologist. Radiation optimization: All CT scans at this facility use at least one of these dose optimization techniques: automated exposure control; mA and/or kV adjustment per patient size (includes targeted exams where dose is matched to clinical indication); or iterative reconstruction. Contrast material: ISOVUE 370; Contrast volume: 100 ml; Contrast route: IV; COMPARISON: PT PET/CT Skull/mid thigh 05/23/2017 11:31 AM FINDINGS: VASCULATURE: Right common carotid artery: Unremarkable. No stenosis. No dissection or occlusion. Right internal carotid artery: There is mild atherosclerotic changes in the proximal right ICA estimated at less than 50 % narrowing which is consistent with a mild stenosis using NASCET criteria. Right external carotid artery: Unremarkable. No occlusion or stenosis of the origin. Right vertebral artery: Unremarkable. No stenosis. No dissection or occlusion. Left common carotid artery: Unremarkable. No stenosis. No dissection or occlusion. Left internal carotid artery: There is mild atherosclerotic changes in the proximal left ICA estimated at less than 50 % narrowing which is consistent with a mild stenosis using NASCET criteria. Left external carotid artery: Unremarkable. No occlusion or stenosis of the origin. Left vertebral artery: Unremarkable. No stenosis. No dissection or occlusion. Subclavian arteries: Mild atherosclerotic changes at the origin of the left subclavian and brachiocephalic arteries without significant stenosis. Aorta: The aorta demonstrates mild atherosclerotic calcification. NECK: Bones/joints: Degenerative spondylosis cervical spine. Soft tissues: Normal. No significant soft tissue swelling. Other findings: Osteoporosis. IMPRESSION: 1. There is mild atherosclerotic changes in the proximal right ICA estimated at less than 50 % narrowing which is consistent with a mild stenosis using NASCET criteria. 2. There is mild atherosclerotic changes in the proximal left ICA estimated at less than 50 % narrowing which is consistent with a mild stenosis using NASCET criteria. 3. Right vertebral artery dominance. COMMENT: Reference per NASCET criteria for degree of stenosis: Mild: less than 50% stenosis. Moderate: 50-69% stenosis. Severe: 70-94% stenosis. Near occlusion: 95-99% stenosis. Electronically signed by: Osmar Hussein On 06/20/2019 19:44:37 PM
--- NOTE | 2019-06-20 19:48 | REPVR ---
PROCEDURE INFORMATION: Exam: CT Angiography Head With Contrast Exam date and time: 06/20/2019 7:18 PM Age: 74 years old Clinical indication: Syncope and collapse TECHNIQUE: Imaging protocol: Computed tomography angiography of the head with intravenous contrast. 3D rendering: MIP and/or 3D reconstructed images were created by the technologist. Radiation optimization: All CT scans at this facility use at least one of these dose optimization techniques: automated exposure control; mA and/or kV adjustment per patient size (includes targeted exams where dose is matched to clinical indication); or iterative reconstruction. Contrast material: ISOVUE 370; Contrast volume: 100 ml; Contrast route: IV; COMPARISON: CT Head without contrast 06/20/2019 4:55 PM FINDINGS: Right internal carotid artery: Atherosclerotic changes demonstrated in the right intracranial carotid artery. No significant stenosis. Right anterior cerebral artery: Unremarkable. No occlusion or significant stenosis. No aneurysm. Right middle cerebral artery: Unremarkable. No occlusion or significant stenosis. No aneurysm. Right posterior cerebral artery: Persistent circulation at the origin of the right posterior cerebral artery with small contribution from the basilar artery. Right vertebral artery: Unremarkable. No occlusion or significant stenosis. No aneurysm. Left internal carotid artery: Atherosclerotic changes demonstrated in the left intracranial carotid artery. No significant stenosis. Left anterior cerebral artery: Unremarkable. No occlusion or significant stenosis. No aneurysm. Left middle cerebral artery: Unremarkable. No occlusion or significant stenosis. No aneurysm. Left posterior cerebral artery: Unremarkable. No occlusion or significant stenosis. No aneurysm. Left vertebral artery: Unremarkable. No occlusion or significant stenosis. No aneurysm. Basilar artery: Unremarkable. No occlusion or significant stenosis. No aneurysm. IMPRESSION: 1. Atherosclerotic changes demonstrated in the right intracranial carotid artery. No significant stenosis. 2. Atherosclerotic changes demonstrated in the left intracranial carotid artery. No significant stenosis. 3. Otherwise unremarkable. Electronically signed by: Osmar Hussein On 06/20/2019 19:47:39 PM
[2019-06-20] MEDS: HEPARIN SOD (PORCINE) 5000 UNITS/ML VIAL SC SCH (20:08)
[2019-06-20] MEDS: IBUPROFEN 600 MG TAB PO SCH (20:09)
[2019-06-20 20:32] VITALS: BP 144/70
[2019-06-21 06:00] VITALS: BP 114/53
[2019-06-21] MEDS ORDERED: MYCOPHENOLATE MOFETIL 250 MG CAP (J7517) PO SCH (06:00)
[2019-06-21] MEDS ORDERED: PYRIDOSTIGMINE 60 MG TAB PO SCH (06:00)
[2019-06-21 06:43] LABS: HEMATOCRIT 43.1 % (42.0-52.0); MEAN CORPUSCULAR HEMOGLOBIN 29.7 pg (27.0-33.0); MEAN CORPUSCULAR HGB CONC 32.5 g/dl (32.0-36.5); MEAN CORPUSCULAR VOLUME 91.5 fl (80.0-96.0); PLATELET COUNT, AUTOMATED 171 10^3/uL (150-450); RED BLOOD COUNT 4.71 10^6/uL (4.30-6.10); WHITE BLOOD COUNT 7.1 10^3/uL (4.0-10.0)
[2019-06-21 07:08] LABS: BLOOD UREA NITROGEN 19 MG/DL (7-18); CARBON DIOXIDE LEVEL 25 MEQ/L (21-32); CHLORIDE LEVEL 104 MEQ/L (98-107); CREATININE FOR GFR 1.02 MG/DL (0.70-1.30); GLOMERULAR FILTRATION RATE > 60.0 (>42); GLUCOSE, FASTING 116 MG/DL (70-100); MAGNESIUM LEVEL 2.1 MG/DL (1.8-2.4); POTASSIUM SERUM 3.7 MEQ/L (3.5-5.1); SODIUM LEVEL 137 MEQ/L (136-145)
[2019-06-21] MEDS: HEPARIN SOD (PORCINE) 5000 UNITS/ML VIAL SC SCH (08:16)
[2019-06-21 08:18] VITALS: BP 131/60
[2019-06-21] MEDS: IBUPROFEN 600 MG TAB PO SCH (08:18)
[2019-06-21] MEDS ORDERED: amLODIPine 10 MG TAB PO SCH (09:00)
[2019-06-21] MEDS ORDERED: MULTIVITAMINS/MINERALS THERAP 1 TAB PO SCH (09:00)
[2019-06-21] MEDS ORDERED: ATORVASTATIN 20 MG TAB PO SCH (09:00)
--- NOTE | 2019-06-21 15:15 | ECHO ---
DATE OF PROCEDURE: 06/21/2019 REFERRING PHYSICIAN: Dr. Rutledge INDICATION: Syncope. HEIGHT: 173 cm. WEIGHT: 76 kg. DIMENSIONS: IV is 1.2 LV 5.6 LVPW 1.2 LA 4.0 Aorta 3.4 IVC 1.7 Mitral E wave velocity 80, A-wave 78 E prime septal 5.4 E prime lateral 8.2 FINDINGS: The study is of acceptable technical quality. The patient is in sinus bradycardia with ventricular rate between 50 and 55 beats per minute. Left ventricle is upper limits of normal size. Mild LVH is present. There is hyperdynamic LV systolic function, I estimate left ventricular ejection fraction of 65-70%. Right ventricle appears normal. Left atrium is borderline enlarged. Right atrium appears normal. Aortic valve has 3 cusps. There is minimal sclerosis but mobility is preserved. Mitral, tricuspid and pulmonic valves appear normal. No pericardial effusion is noted. Inferior vena cava is normal size. Aortic root is normal. Aortic arch and abdominal aorta were poorly visualized. Doppler interrogation of aortic valve reveals trivial stenosis with mean gradient 7 mmHg and approximately [id number] aortic insufficiency. The AI jet is oriented toward anterior mitral leaflet impairing mitral inflow pattern. There is no significant mitral stenosis but trace mitral insufficiency is present. There is trace tricuspid insufficiency. Calculated pulmonary artery pressure is approximately 30 mmHg corresponding to borderline pulmonary hypertension. Trace pulmonic insufficiency is also seen. Mitral inflow pattern and tissue Doppler imaging of mitral annulus reveal most likely grade 2 diastolic dysfunction, even though mitral inflow pattern is compromised by aortic insufficiency jet and consequently this should not be considered overly reliable. CONCLUSION: 1. Study is of good technical quality, the patient is in sinus bradycardia. 2. Normal LV size with mild LVH and hyperdynamic LV systolic function, estimated left ventricular ejection fraction around 65-70%. Probably grade 2 diastolic dysfunction. 3. [id number] aortic insufficiency. 4. No further significant valvular disease. 5. Likely normal central venous pressure and probably mild pulmonary hypertension COMMENTS: SBE prophylaxis is not recommended. No findings to explain syncopal event. MTDD
--- NOTE | 2019-06-21 16:08 | DS.PDOC ---
Discharge Summary General Date of Admission Jun 20, 2019 at 15:59 Date of Discharge 06/21/19 Discharge Summary PROCEDURES PERFORMED DURING STAY: [None]. ADMITTING DIAGNOSES: Near syncope Myasthenia gravis DISCHARGE DIAGNOSES: Near syncope Myasthenia gravis COMPLICATIONS/CHIEF COMPLAINT: Near Syncope. 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 Patient stated that today he developed 5 episodes of syncope associated with high-pitched sounds in his head, lightheadedness and weakness. He stated that he had this symptoms before but not such frequency. In ER patient was found to have white blood count of 7.7, hemoglobin 14.3, blood pressure of 159/70 with heart rate of 67. Patient stated that pacemaker evaluation was done recently a few weeks ago by Dr. Ferrara. HOSPITAL COURSE: During hospital stay CT head was negative, CT neck was negative for significant stenosis, echocardiogram did not reveal significant valves abnormalities. Most likely patient presentation associated with side effect of physostigmine. I will defer to adjust the dose of physostigmine to neurologist DISCHARGE MEDICATIONS: Please see below. ALLERGIES: Please see below. PHYSICAL EXAMINATION ON DISCHARGE: VITAL SIGNS: Please see below. Objective: VITAL SIGNS: Please see below. GENERAL APPEARANCE: Well-nourished, well-developed, not in apparent distress HEENT: Normocephalic, atraumatic. Mucous members moist and pink CARDIOVASCULAR: Regular rate and rhythm. No murmurs, rubs or gallops. Radial pulses are intact. There is no lower extremity edema LUNGS: Diminished lung sounds ABDOMEN: Abdomen is soft and nontender. MUSCULOSKELETAL: Range of motion is intact in all 4 extremities NEUROLOGICAL: Cranial nerves II-12 are grossly intact. Speech is not dysarthric LABORATORY DATA: Please see below. IMAGING: [facility] NAME: MICHAEL RUSSELL DATE OF : 1945 BUSINESS NUMBER: [id number] AGE: 74 SEX: M REPORT #: [id number] ROOM: [facility] IN TECHNOLOGIST: ISAAC DOCTOR: SEGUN CARLSON DO Ordered for Date&Time: 06/20/191905 cc: [~ rep ct ivnm] Service Date&Time: 06/20/191917 This report is in Signed status. Interpretation performed by [facility]. Thank you for having your radiology procedures performed at [facility] RADIOLOGY REPORT Date&Time printed: [~ rep prt dt last] [~ rep prt tm last] Page 2 of [address] [address] RADIOLOGY REPORT This report is in Signed status. Interpretation performed by [facility]. Thank you for having your radiology procedures performed at [facility] RADIOLOGY REPORT Date&Time printed: [~ rep prt dt last] [~ rep prt tm last] Page 1 of 2 PROCEDURE INFORMATION: Exam: CT Angiography Head With Contrast Exam date and time: 06/20/2019 7:18 PM Age: 74 years old Clinical indication: Syncope and collapse TECHNIQUE: Imaging protocol: Computed tomography angiography of the head with intravenous contrast. 3D rendering: MIP and/or 3D reconstructed images were created by the technologist. Radiation optimization: All CT scans at this facility use at least one of these dose optimization techniques: automated exposure control; mA and/or kV adjustment per patient size (includes targeted exams where dose is matched to clinical indication); or iterative reconstruction. Contrast material: ISOVUE 370; Contrast volume: 100 ml; Contrast route: IV; COMPARISON: CT Head without contrast 06/20/2019 4:55 PM FINDINGS: Right internal carotid artery: Atherosclerotic changes demonstrated in the right intracranial carotid artery. No significant stenosis. Right anterior cerebral artery: Unremarkable. No occlusion or significant stenosis. No aneurysm. Right middle cerebral artery: Unremarkable. No occlusion or significant stenosis. No aneurysm. Right posterior cerebral artery: Persistent circulation at the origin of the right posterior cerebral artery with small contribution from the basilar artery. Right vertebral artery: Unremarkable. No occlusion or significant stenosis. No aneurysm. Left internal carotid artery: Atherosclerotic changes demonstrated in the left intracranial carotid artery. No significant stenosis. Left anterior cerebral artery: Unremarkable. No occlusion or significant stenosis. No aneurysm. Left middle cerebral artery: Unremarkable. No occlusion or significant stenosis. No aneurysm. Left posterior cerebral artery: Unremarkable. No occlusion or significant stenosis. No aneurysm. Left vertebral artery: Unremarkable. No occlusion or significant stenosis. No aneurysm. Basilar artery: Unremarkable. No occlusion or significant stenosis. No aneurysm. IMPRESSION: 1. Atherosclerotic changes demonstrated in the right intracranial carotid artery. No significant stenosis. 2. Atherosclerotic changes demonstrated in the left intracranial carotid artery. No significant stenosis. 3. Otherwise unremarkable. Electronically signed by: Osmar Barroso On 06/20/2019 19:47:39 PM DD: OSMAR BARROSO MD 06/20/191917 DT: LADY 06/20/191946 DS: JAG 06/20/191946 [~ rep ct labl] INDICATION: Syncope. HEIGHT: 173 cm. WEIGHT: 76 kg. DIMENSIONS: IV is 1.2 LV 5.6 LVPW 1.2 LA 4.0 Aorta 3.4 IVC 1.7 Mitral E wave velocity 80, A-wave 78 E prime septal 5.4 E prime lateral 8.2 FINDINGS: The study is of acceptable technical quality. The patient is in sinus bradycardia with ventricular rate between 50 and 55 beats per minute. Left ventricle is upper limits of normal size. Mild LVH is present. There is hyperdynamic LV systolic function, I estimate left ventricular ejection fraction of 65-70%. Right ventricle appears normal. Left atrium is borderline enlarged. Right atrium appears normal. Aortic valve has 3 cusp. There is minimal sclerosis but mobility is preserved. Mitral tricuspid and pulmonic valves appear normal. No pericardial effusion is noted. Inferior vena cava is normal size. Aortic root is normal. Aortic arch and abdominal aorta were poorly visualized. Doppler interrogation of aortic valve reveals trivial stenosis with mean gradient 7 mmHg and approximately brja-va-jexoeces aortic insufficiency. The AI jet is crossing anterior mitral leaflet impairing mitral inflow pattern. There is no significant mitral stenosis but trace mitral insufficiency is present. There is trace tricuspid insufficiency. Calculated pulmonary artery pressure is approximately 30 mmHg corresponding to borderline pulmonary hypertension. Trace pulmonic insufficiency is also seen. Mitral inflow pattern and tissue Doppler imaging of mitral annulus reveal most likely grade 2 diastolic dysfunction, even though mitral inflow pattern is compromised by aortic insufficiency jet and consequently this should not be considered overly reliable. CONCLUSION: 1. Study is of good technical quality, the patient is in sinus bradycardia. 2. Normal LV size with mild LVH and hyperdynamic LV systolic function, estimated left ventricular ejection fraction around 65-70%. Probably grade 2 diastolic dysfunction. 3. [id number]-[id number] aortic insufficiency. 4. No further significant valvular disease. 5. Likely normal central venous pressure and probably mild pulmonary hypertension PROGNOSIS: Favorable ACTIVITY: [As tolerated]. DIET: Cardiac DISCHARGE PLAN: Home DISPOSITION: 01 Home, Self-Care. ITEMS TO FOLLOWUP ON ON OUTPATIENT: With neurologist DISCHARGE CONDITION: Stable TIME SPENT ON DISCHARGE: Greater than 20 minutes. Vital Signs/I&Os Vital Signs Date Time Temp Pulse Resp B/P (MAP) Pulse Ox O2 Delivery O2 Flow Rate FiO2 06/21/19 08:18 56 131/60 06/21/19 06:00 98.1 20 96 Room Air I&O- Last 24 Hours up to 6 AM 06/21/19 06:00 Intake Total 300 ml Output Total 140 ml Balance 160 ml Laboratory Data Labs 24H Laboratory Tests 2 06/20/19 16:22: Immature Granulocyte % (Auto) 0.3, Neutrophils (%) (Auto) 80.5H, Lymphocytes (%) (Auto) 9.5L, Monocytes (%) (Auto) 7.8H, Eosinophils (%) (Auto) 1.4, Basophils (%) (Auto) 0.5, Neutrophils # (Auto) 6.2, Lymphocytes # (Auto) 0.7L, Monocytes # (Auto) 0.6, Eosinophils # (Auto) 0.1, Basophils # (Auto) 0.0, Nucleated Red Blood Cells % (auto) 0.0, Prothrombin Time 12.8, Prothromb Time International Ratio 0.99, Activated Partial Thromboplast Time 25.8, Anion Gap 10, Glomerular Filtration Rate > 60.0, Calcium Level 9.5, Total Bilirubin 0.6, Direct Bilirubin 0.3H, Aspartate Amino Transf (AST/SGOT) 14, Alanine Aminotransferase (ALT/SGPT) 23, Alkaline Phosphatase 53, Total Creatine Kinase 129, Creatine Kinase MB 1.9, Creatine Kinase MB Relative Index 1.47, Troponin I < 0.02, Total Protein 6.6, Albumin 4.3, Albumin/Globulin Ratio 1.87, Lipase 230, Thyroid Stimulating Hormone (TSH) 1.150, Free Thyroxine 1.23 06/21/19 06:13: Anion Gap 8, Glomerular Filtration Rate > 60.0, Calcium Level 9.0, Magnesium Level 2.1 06/21/19 06:14: Nucleated Red Blood Cells % (auto) 0.0 CBC/BMP Laboratory Tests 06/20/19 16:22 06/21/19 06:13 06/21/19 06:14 Discharge Medications Scheduled Amlodipine Besylate (Amlodipine Besylate) 10 Mg Tablet, 10 MG PO DAILY, (Reported) Atorvastatin Calcium (Atorvastatin Calcium) 40 Mg Tablet, 40 MG PO DAILY, (Reported) Hydrocortisone (Hydrocortisone 0.5%) 28.35 Gm Cream..g., 1 APLCT TOP BID, (Reported) APPLY TO SIDES OF FACE Ibuprofen (Ibuprofen) 600 Mg Tablet, 600 MG PO TID, (Reported) Multivitamins (Thera M Plus Tablet) 1 Each Tablet, 1 TAB PO DAILY, (Reported) Mycophenolate Mofetil (Cellcept) 500 Mg Tablet, 1,000 MG PO BID, (Reported) 0600, 1500. LEAVE TWO HOURS IN BETWEEN THIS MEDICATION AND BREAKFAST Omeprazole (Omeprazole) 40 Mg Capsule.dr, 40 MG PO DAILY, (Reported) Pyridostigmine Modena (Pyridostigmine Modena) 60 Mg Tablet, 60 MG PO BID, (Reported) 0600, 1500. LEAVE 2 HOURS IN BETWEEN THIS MEDICATION AND BREAKFAST Scheduled PRN Acetaminophen (Acetaminophen ER) 650 Mg Tablet.er, 650 MG PO TID PRN for PAIN, (Reported) Prochlorperazine Maleate (Prochlorperazine Maleate) 10 Mg Tab, 10 MG PO Q6H PRN for NAUSEA, (Reported) Allergies Coded Allergies: WOOL (FABRIC) (Verified Allergy, Intermediate, RASH,PRURITIS, 09/11/06) codeine (Verified Allergy, Mild, lethargy, 11/14/18) FISH (Verified Allergy, Unknown, 09/11/06) Mushroom (Verified Allergy, Unknown, 09/11/06) SEAFOOD (Verified Allergy, Unknown, 05/09/17) SEGUN CARLSON DO Jun 21, 2019 16:08
--- NOTE | 2019-06-21 22:20 | ECGEPIP ---
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
== END 2019-06-21 11:35 | disposition home or self-care (01) ==
LOC: M ED 15:58 → M ED INP 15:59 → ENRESERV 18:39 → M MSPAV 19:32
PROVIDERS: ADMIT Internal Medicine; ATTEND Internal Medicine
DX: R55 Syncope and collapse (principal); G70.00 Myasthenia gravis without (acute) exacerbation; K21.9 Gastro-esophageal reflux disease without esophagitis; D50.9 Iron deficiency anemia, unspecified; Z95.0 Presence of cardiac pacemaker; Z79.899 Other long term (current) drug therapy; Z91.013 Allergy to seafood; Z88.5 Allergy status to narcotic agent; Z91.018 Allergy to other foods
CPT/HCPCS: 36415; 70450; 70496; 70498; 71045; 80048; 80076; 82550; 82553; 83690; 83735; 84439; 84443; 84484; 85025; 85027; 85610; 85730; 93005; 93041; 93306; 94760; 96372; 96374; 97161; 99285; G0378; J2405; J7517; Q9967

== ENCOUNTER 2019-08-01 07:36 | Day surgery (SDC) | payer OTHER ==
[~2019-08-01] VITALS: Ht 177.8 cm; Wt 76.2 kg
[~2019-08-01 07:36] MED LIST changes: +ACET650T15 PO; +AMLO10TA5 PO; +HYDR12.55 PO; +IBUP-1022 PO; +LIDOCAINE 1% MDV 20ML VIAL SQ PRN; +LR 1,000 ML IV ONE; +ROSU40TA4; +VITAD1000T PO; +ceFAZolin SOD 1 GM in D5W MINI-BAG PLUS 50 ML IV ONE
[2019-08-01] MEDS ORDERED: SCOPOLAMINE 1MG TRANSDERMAL PATCH TOP ONE (08:00)
[2019-08-01] MEDS ORDERED: BUPIVACAINE/EPIN 0.25% 30 ML VIAL As Ordered ONE (09:28)
[2019-08-01] MEDS ORDERED: ROCURONIUM BROMIDE 50 MG/5 ML VIAL As Ordered ONE (09:59)
[2019-08-01] MEDS ORDERED: ONDANSETRON 4MG/2ML VIAL (J2405) As Ordered ONE ×2 (09:59→11:54)
[2019-08-01] MEDS ORDERED: KETOROLAC 60 MG/2 ML VIAL (J1885) As Ordered ONE (09:59)
[2019-08-01] MEDS ORDERED: SUGAMMADEX SODIUM 500 MG/5 ML VIAL (BRIDION) As Ordered ONE (09:59)
[2019-08-01] MEDS ORDERED: LIDOCAINE 2% INJ 100 MG/5 ML SDV (FOR ANES.) As Ordered ONE (09:59)
[2019-08-01] MEDS ORDERED: dexameTHASONE 4 MG/ML 1ML VIAL (J1100) As Ordered ONE (09:59)
[2019-08-01] MEDS ORDERED: propofoL 200 MG/20 ML VIAL As Ordered ONE (09:59)
[2019-08-01] MEDS ORDERED: METOCLOPRAMIDE INJ 10MG/2ML VIAL (J2765) As Ordered ONE (09:59)
[2019-08-01] MEDS ORDERED: fentaNYL 250 MCG/5 ML INJECTION (J3010) As Ordered ONE (09:59)
[2019-08-01] MEDS ORDERED: MIDAZOLAM INJ 2 MG/2 ML VIAL (J2250) As Ordered ONE (09:59)
[2019-08-01] MEDS ORDERED: ACETAMINOPHEN 1000MG 100ML IV BTL (OFIRMEV) (J0131 PER 10MG) As Ordered ONE (10:41)
--- NOTE | 2019-08-01 11:36 | RO ---
DATE OF PROCEDURE: 08/01/2019 PREOPERATIVE DIAGNOSIS: Right inguinal hernia. POSTOPERATIVE DIAGNOSIS: Right inguinal hernia (indirect). PROCEDURE: Robotic-assisted laparoscopic right inguinal hernia repair with ProGrip mesh. SURGEON: Dr. Sanjiv Gray. SERVICE ATTENDANT CAFETERIA: STEFANI Richards providing instrument exchange, trocar placement and placement of mesh. ANESTHESIA: General endotracheal anesthesia. ESTIMATED BLOOD LOSS: Minimal. FLUIDS: Crystalloid. DESCRIPTION OF PROCEDURE: The patient was brought to the operating room and was given general anesthesia. After adequate anesthesia and preoperative antibiotics were given, the patient was prepped and draped in the usual sterile fashion. Next a supraumbilical incision was made with skin knife. Blunt dissection was carried down to fascia. Fascia was entered with Veress needle, insufflated to 15 mm of pressure and then an 8 mm trocar was placed at this time. Under direct visualization two lateral 8 mm trocars were placed. The patient was placed in Trendelenburg position. There was small bowel that was down into the inguinal canal with reduced nicely, but still was quite adherent right at the edge of the canal but it was all adherent such that there was not a internal hernia present. Thus, I decided not to take down this area instead mobilizing it all with the hernia sac itself. In any case, the camera was docked and the patient placed at 20 degrees of Trendelenburg and the peritoneum was taken down with the monopolar cut scissors. The peritoneal flap was created. This quite adherent medially and laterally still little bit as well. But taking down this very thin peritoneum, I was able to stay in the plane quite nicely and stay on the hernia sac and mobilize the hernia sac. After dissecting the hernia sac, and during this mobilization, it was apparent that there was probably the iliohypogastric or ilioinguinal nerve that was coming through the fascia and following this down medially. This was seen and preserved, was not transected and all the dissection that was performed was around this area leaving the nerve without palpation of the instruments. In any case, after all the hernia sac had been mobilized, which was quite adherent, the patient had a previous TEP repair and there was a lot of adhesions in the preperitoneal space and the right inguinal area had been evaluated previously over about 10 years ago. Given this previous surgery, there was a lot of adhesions that needed to be taken down in this preperitoneal space. In any case, after all this hernia sac was mobilized, there was a small lipoma in the cord that was mobilized transected at its base and then a ProGrip mesh was cut to the appropriate size, placed in the area, pressed into position with the peritoneal closure of #3-0 V-Loc. All trocars removed under direct visualization, #4-0 Vicryl was used to close all skin incisions. Steri-Strips and dry sterile dressing was applied. Patient was awakened, extubated, brought to recovery room awake, alert, hemodynamically stable. Sponge and needle counts correct times two.
[2019-08-01] MEDS ORDERED: fentaNYL 100 MCG/2 ML INJECTION (J3010) As Ordered ONE (11:54)
[2019-08-01] MEDS: fentaNYL 100 MCG/2 ML INJECTION (J3010) IV PRN ×3 (11:57→12:12)
[2019-08-01] MEDS ORDERED: METOCLOPRAMIDE INJ 10MG/2ML VIAL (J2765) IV PRN (12:00)
[2019-08-01] MEDS ORDERED: ONDANSETRON 4MG/2ML VIAL (J2405) IV PRN (12:00)
[2019-08-01] MEDS ORDERED: traMADol 50 MG TAB PO PRN (12:00)
[2019-08-01] MEDS ORDERED: PERCOCET 5MG/325MG TAB PO PRN (12:00)
[2019-08-01] MEDS ORDERED: HYDROMORPHONE HCL 0.5 MG/ 0.5 ML SYRINGE (J1170 PER 1) IV PRN (12:00)
[2019-08-01] MEDS ORDERED: LR 1,000 ML IV SCH ×2 (12:00→12:30)
[2019-08-01 14:21] VITALS: BP 153/70
== END 2019-08-01 14:45 | disposition home or self-care (01) ==
LOC: M SDC 07:36
PROVIDERS: ATTEND Surgery
DX: K40.91 Unilateral inguinal hernia, without obstruction or gangrene, recurrent (principal); D17.6 Benign lipomatous neoplasm of spermatic cord; I11.9 Hypertensive heart disease without heart failure; I77.810 Thoracic aortic ectasia; Z95.0 Presence of cardiac pacemaker; R94.31 Abnormal electrocardiogram [ECG] [EKG]; Z87.891 Personal history of nicotine dependence; G47.33 Obstructive sleep apnea (adult) (pediatric); M19.90 Unspecified osteoarthritis, unspecified site; K57.92 Diverticulitis of intestine, part unspecified, without perforation or abscess without bleeding; R51 Headache; G70.00 Myasthenia gravis without (acute) exacerbation; Z79.899 Other long term (current) drug therapy; Z88.5 Allergy status to narcotic agent; Z91.018 Allergy to other foods; Z91.013 Allergy to seafood; Z91.048 Other nonmedicinal substance allergy status
CPT/HCPCS: 49651; C1781; J0131; J0690; J1100; J1885; J2250; J2405; J2765; J3010

== ENCOUNTER → 2020-10-30 | Outpatient (CLI) | payer OTHER ==
[~2020-10-30] MED LIST changes: -AMLO10TA5 PO; +AMLO1TAB24 PO; +AMLO1TAB25 PO; -AMLO5TAB6 PO; +ASCO250T20 PO; +CYAN500T14 PO; -CYAN500T8 PO; +D31000TA2 PO; -LIDOCAINE 1% MDV 20ML VIAL SQ PRN; -LR 1,000 ML IV ONE; -VITA1TAB23 PO; -VITAD1000T PO; -ceFAZolin SOD 1 GM in D5W MINI-BAG PLUS 50 ML IV ONE
--- NOTE | 2020-10-30 14:02 | REP ---
INDICATION: SPINAL STENOSIS W/ NEUROGENIC CLAUDICATION. COMPARISON: Comparison is made with images from CT abdomen pelvis take in November 14, 2018.. TECHNIQUE: Helical scanning is performed through the lower thoracic and lumbar spine, T10 through S2. 4 mm axial images re-formatted. Coronal and sagittal MPR images are generated. FINDINGS: Lumbar vertebral body heights are preserved. Alignment is normal. There is a bone island in the left side of the pedicle of L4. This is unchanged in appearance from the 2019 study. Coronal images demonstrate a minimal dextroconvex curvature. There is no evidence of spondylolysis or spondylolisthesis. No significant extra vertebral abnormality is observed. There is some vascular calcification. Axial and sagittal images taken at L5-S1 show no evidence of spinal stenosis, disc protrusion, or foraminal narrowing. At L4-5, there is mild diffuse disc narrowing and mild diffuse disc bulging. No bony foraminal stenosis is seen. Canal size is borderline and somewhat triangular in configuration. There is minimal facet hypertrophy. At L3-4, there is mild diffuse disc bulging and disc space narrowing is seen. No focal disc protrusion is seen. No spinal stenosis or neural foraminal encroachment is seen. At L2-3, there is minimal diffuse disc bulging. No spinal stenosis or foraminal narrowing is seen. At the L1-2 disc level there is no disc abnormality. The visualized lower thoracic disc levels are unremarkable as well. IMPRESSION: Minimal degenerative disc changes. Borderline canal size at L4-5. <Electronically signed by Luis Taylor > 10/30/20 [id number]
== END ==
LOC: M RAD 13:27
PROVIDERS: ATTEND Psychiatry & Neurology Neurology
DX: M48.062 Spinal stenosis, lumbar region with neurogenic claudication (principal)

== ENCOUNTER → 2021-02-01 | Outpatient (CLI) | payer OTHER ==
--- NOTE | 2021-02-01 10:01 | REP ---
INDICATION: RUQ ABD PAIN COMPARISON: Abdominopelvic CT dated 11/14/2018 TECHNIQUE: Real time iqbal scale ultrasound examination using curved array transducer. FINDINGS: Liver demonstrates scattered simple and complex appearing cysts measuring up to approximately 5.2 cm in the right lobe and which appear to conform with findings on prior CT. Pancreas is incompletely evaluated due to interposed bowel gas. The gallbladder is normal and without gallstones, wall thickening, or pericholecystic fluid. No biliary ductal dilatation is appreciated and the common bile duct measures 8 mm diameter. Right kidney is normal in reniform shape without hydronephrosis and measures 9.2 x 5.2 x 4.6 cm. No ascites in the visualized right upper quadrant. IMPRESSION: 1. Simple and complex septated hepatic cysts up to 5.2 cm similar to findings on prior CT. 2. Relatively normal appearance to the gallbladder and biliary system by current ultrasound and the previously noted small gallstones are not identifiable. <Electronically signed by Pa Heath > 02/01/21 [id number]
== END ==
LOC: M RAD 09:12
PROVIDERS: ATTEND Internal Medicine
DX: K76.89 Other specified diseases of liver (principal); R10.10 Upper abdominal pain, unspecified

== ENCOUNTER 2021-05-18 18:02 | Emergency (ER) | payer MEDICARE, OTHER ==
[~2021-05-18] VITALS: Ht 172.7 cm; Wt 77.3 kg
[~2021-05-18 18:02] MED LIST changes: -OMEP-221 PO; +OMEP40CA5 PO; -PROC10TA4 PO; +PROC10TA5 PO
[2021-05-18 18:40] LABS: BASO # 0.1 10^3/uL (0.0-0.2); BASO % 0.6 % (0.0-1.0); EOS # 0.1 10^3/uL (0.0-0.5); EOS % 0.8 % (0.0-3.0); HEMATOCRIT 42.1 % (42.0-52.0); LYMPH # 0.7 10^3/uL (1.5-5.0); LYMPH % 6.1 % (24.0-44.0); MEAN CORPUSCULAR HEMOGLOBIN 30.3 pg (27.0-33.0); MEAN CORPUSCULAR HGB CONC 33.3 g/dl (32.0-36.5); MEAN CORPUSCULAR VOLUME 91.1 fl (80.0-96.0); MONO # 0.7 10^3/uL (0.0-0.8); MONO % 6.5 % (2.0-8.0); NEUTROPHILS # 9.4 10^3/uL (1.5-8.5); NEUTROPHILS % 85.5 % (36.0-66.0); PLATELET COUNT, AUTOMATED 141 10^3/uL (150-450); RED BLOOD COUNT 4.62 10^6/uL (4.30-6.10)
[2021-05-18 19:26] LABS: ALBUMIN 3.5 GM/DL (3.2-5.2); ALT/SGPT 22 U/L (12-78); BILIRUBIN,DIRECT 0.2 MG/DL (0.0-0.2); BILIRUBIN,TOTAL 0.5 MG/DL (0.2-1.0); BLOOD UREA NITROGEN 19 MG/DL (7-18); CALCIUM LEVEL 8.7 MG/DL (8.8-10.2); CARBON DIOXIDE LEVEL 24 MEQ/L (21-32); CHLORIDE LEVEL 107 MEQ/L (98-107); GLOMERULAR FILTRATION RATE > 60.0 (>42); GLUCOSE, FASTING 92 MG/DL (70-100); LIPASE 232 U/L (73-393); SODIUM LEVEL 138 MEQ/L (136-145); TOTAL PROTEIN 6.2 GM/DL (6.4-8.2)
[2021-05-18 19:27] LABS: POTASSIUM SERUM 4.5 MEQ/L (3.5-5.1)
[2021-05-18 21:33] VITALS: BP 141/67
== END 2021-05-18 21:58 | disposition home or self-care (01) ==
LOC: EDBD 18:02 → M ED 18:02
DX: R55 Syncope and collapse (principal); R11.2 Nausea with vomiting, unspecified; R00.1 Bradycardia, unspecified; K80.20 Calculus of gallbladder without cholecystitis without obstruction; N28.1 Cyst of kidney, acquired; K21.9 Gastro-esophageal reflux disease without esophagitis; K57.30 Diverticulosis of large intestine without perforation or abscess without bleeding; Z88.6 Allergy status to analgesic agent; Z88.8 Allergy status to other drugs, medicaments and biological substances; Z79.899 Other long term (current) drug therapy

== ENCOUNTER → 2021-06-13 | Outpatient (REF) | payer OTHER ==
[~2021-06-13] MED LIST changes: +OMEP-221 PO; -OMEP40CA5 PO; +PROC10TA4 PO; -PROC10TA5 PO
[2021-06-13 13:08] LABS: AMYLASE 113 U/L (25-115); LIPASE 296 U/L (73-393)
== END ==
LOC: M LAB REF 11:53
PROVIDERS: ATTEND Nurse Practitioner Adult Health
DX: R10.9 Unspecified abdominal pain (principal)

== ENCOUNTER → 2021-10-03 | Outpatient (CLI) | payer OTHER ==
[~2021-10-03] MED LIST changes: +ALEN70TA82 PO; -D31000TA2 PO; +DICL1GEL3 TOP; -OMEP-221 PO; +OMEP40CA5 PO; +POTA1TAB23 PO; -PROC10TA4 PO; +PROC10TA5 PO; +VITA100093 PO
== END ==
LOC: M LABSMTC 10:23
PROVIDERS: ATTEND Anesthesiology
DX: Z01.812 Encounter for preprocedural laboratory examination (principal); Z20.822 Contact with and (suspected) exposure to COVID-19

== ENCOUNTER 2021-10-07 08:41 | Day surgery (SDC) | payer OTHER ==
[~2021-10-07] VITALS: Ht 172.7 cm; Wt 74.1 kg
[~2021-10-07 08:41] MED LIST changes: +CEFUROXIME 1MG/0.1ML INTRACAMERAL INJ As Ordered ONE; +LIDOCAINE 1% SDV 5ML VIAL As Ordered ONE; +PROPARACAINE 0.5% OPHTH SOL 15ML OD ONE
[2021-10-07] MEDS: PHENYLEPHRINE 2.5% OPHTH SOL 2ML OD SCH ×3 (09:51→10:12)
[2021-10-07] MEDS: TROPICAMIDE 1% OPHTH SOLN 2ML OD SCH ×3 (09:52→10:12)
[2021-10-07] MEDS: OFLOXACIN 0.3 % (OCUFLOX) OPTH SOL 5ML OD SCH ×3 (09:52→10:12)
[2021-10-07] MEDS ORDERED: BSS IRR 500ML/OMIDRIA 4ML IRR BAG (OR ONLY) As Ordered ONE (10:12)
[2021-10-07] MEDS ORDERED: MIDAZOLAM INJ 2MG/2ML VIAL (J2250 PER 1MG) As Ordered ONE (10:50)
[2021-10-07] MEDS ORDERED: fentaNYL 100 MCG/2 ML INJECTION As Ordered ONE (10:50)
[2021-10-07] MEDS ORDERED: ONDANSETRON 4MG/2ML VIAL As Ordered ONE (10:52)
[2021-10-07 11:13] VITALS: BP 146/68
== END 2021-10-07 11:35 | disposition home or self-care (01) ==
LOC: M SDC 08:41
PROVIDERS: ATTEND Ophthalmology
DX: H25.11 Age-related nuclear cataract, right eye (principal); K21.9 Gastro-esophageal reflux disease without esophagitis; G70.00 Myasthenia gravis without (acute) exacerbation; I10 Essential (primary) hypertension; E78.5 Hyperlipidemia, unspecified; Z95.0 Presence of cardiac pacemaker; K57.92 Diverticulitis of intestine, part unspecified, without perforation or abscess without bleeding; Z91.013 Allergy to seafood; Z91.018 Allergy to other foods; Z88.5 Allergy status to narcotic agent; Z79.899 Other long term (current) drug therapy
CPT/HCPCS: 66984; J0697; J1097; J2250; J2405; J3010; V2632

== ENCOUNTER → 2021-10-31 | Outpatient (CLI) | payer OTHER ==
[~2021-10-31] MED LIST changes: -CEFUROXIME 1MG/0.1ML INTRACAMERAL INJ As Ordered ONE; -LIDOCAINE 1% SDV 5ML VIAL As Ordered ONE; -PROPARACAINE 0.5% OPHTH SOL 15ML OD ONE
== END ==
LOC: M LABSMTC 09:45
PROVIDERS: ATTEND Anesthesiology
DX: Z01.812 Encounter for preprocedural laboratory examination (principal)

== ENCOUNTER 2021-11-04 09:45 | Day surgery (SDC) | payer OTHER ==
[~2021-11-04] VITALS: Ht 172.7 cm; Wt 73.7 kg
[~2021-11-04 09:45] MED LIST changes: +BSS IRR 500ML/OMIDRIA 4ML IRR BAG (OR ONLY) As Ordered ONE; +CEFUROXIME 1MG/0.1ML INTRACAMERAL INJ As Ordered ONE; +INSULIN LISPRO (NovoLOG) PER UNIT SC PRN; +LIDOCAINE 1% SDV 5ML VIAL As Ordered ONE; +PROPARACAINE 0.5% OPHTH SOL 15ML OS ONE
[2021-11-04] MEDS ORDERED: fentaNYL 100 MCG/2 ML INJECTION As Ordered ONE (10:09)
[2021-11-04] MEDS ORDERED: MIDAZOLAM INJ 2MG/2ML VIAL (J2250 PER 1MG) As Ordered ONE (10:09)
[2021-11-04] MEDS ORDERED: INSULIN LISPRO (NovoLOG) PER UNIT SC PRN (10:20)
[2021-11-04] MEDS: PHENYLEPHRINE 2.5% OPHTH SOL 2ML OS SCH ×3 (10:49→11:03)
[2021-11-04] MEDS: TROPICAMIDE 1% OPHTH SOLN 2ML OS SCH ×3 (10:49→11:03)
[2021-11-04] MEDS: OFLOXACIN 0.3 % (OCUFLOX) OPTH SOL 5ML OS SCH ×3 (10:49→11:03)
[2021-11-04] MEDS ORDERED: ONDANSETRON 4MG/2ML VIAL As Ordered ONE (12:04)
[2021-11-04 13:05] VITALS: BP 146/76
== END 2021-11-04 13:10 | disposition home or self-care (01) ==
LOC: M SDC 09:45
PROVIDERS: ATTEND Ophthalmology
DX: H25.12 Age-related nuclear cataract, left eye (principal); I10 Essential (primary) hypertension; E78.5 Hyperlipidemia, unspecified; K57.92 Diverticulitis of intestine, part unspecified, without perforation or abscess without bleeding; Z88.5 Allergy status to narcotic agent; Z79.899 Other long term (current) drug therapy; K21.9 Gastro-esophageal reflux disease without esophagitis; G70.00 Myasthenia gravis without (acute) exacerbation; G47.33 Obstructive sleep apnea (adult) (pediatric); Z91.013 Allergy to seafood; Z91.018 Allergy to other foods
CPT/HCPCS: 66984; J0697; J1097; J2250; J2405; J3010; V2632

== ENCOUNTER → 2022-01-24 | Outpatient (REF) | payer OTHER ==
[~2022-01-24] MED LIST changes: -BSS IRR 500ML/OMIDRIA 4ML IRR BAG (OR ONLY) As Ordered ONE; -CEFUROXIME 1MG/0.1ML INTRACAMERAL INJ As Ordered ONE; -INSULIN LISPRO (NovoLOG) PER UNIT SC PRN; -LIDOCAINE 1% SDV 5ML VIAL As Ordered ONE; -PROPARACAINE 0.5% OPHTH SOL 15ML OS ONE
[2022-01-24 20:36] LABS: ALBUMIN 3.9 GM/DL (3.2-5.2); CREATININE FOR GFR 1.32 MG/DL (0.70-1.30); GLOMERULAR FILTRATION RATE 56.4 (>42); PHOSPHORUS LEVEL 2.9 MG/DL (2.5-4.9); POTASSIUM SERUM 4.2 MEQ/L (3.5-5.1)
== END ==
LOC: M WUC 19:23
PROVIDERS: ATTEND Physician Assistant
DX: J06.9 Acute upper respiratory infection, unspecified (principal); U07.1 COVID-19

== ENCOUNTER 2022-06-16 15:19 | Inpatient (IN) | payer OTHER ==
[~2022-06-16] VITALS: Ht 172.7 cm; Wt 75.5 kg
[2022-06-16 17:48] LABS: HEMATOCRIT 44.3 % (42.0-52.0); HEMOGLOBIN 14.2 g/dl (13.5-17.5); MEAN CORPUSCULAR HEMOGLOBIN 30.4 pg (27.0-33.0); MEAN CORPUSCULAR HGB CONC 32.1 g/dl (32.0-36.5); MEAN CORPUSCULAR VOLUME 94.9 fl (80.0-96.0); PLATELET COUNT, AUTOMATED 174 10^3/uL (150-450); RED BLOOD COUNT 4.67 10^6/uL (4.30-6.10); WHITE BLOOD COUNT 5.8 10^3/uL (4.0-10.0)
[2022-06-16 18:05] LABS: BLOOD UREA NITROGEN 20 MG/DL (9-23); CALCIUM LEVEL 9.4 MG/DL (8.3-10.6); CARBON DIOXIDE LEVEL 25 MMOL/L (20-31); CHLORIDE LEVEL 105 MMOL/L (98-107); DIGOXIN LEVEL 0.7 NG/ML (0.8-2.0); GLOMERULAR FILTRATION RATE > 60.0 (>42); GLUCOSE, FASTING 82 MG/DL (74-106); POTASSIUM SERUM 4.8 MMOL/L (3.5-5.1); SODIUM LEVEL 141 MMOL/L (136-145)
[2022-06-16] MEDS ORDERED: NS 1,000 ML IV ONE (19:45)
[2022-06-16] MEDS ORDERED: IMMUNE GLOBULIN IV SCH (22:40)
[2022-06-17] VITALS (11 sets, daily range): BP systolic 124–162; BP diastolic 56–73
[2022-06-17] MEDS ORDERED: IMMUNE GLOBULIN 10% 40 GM in IV 1 EA IV ONE ×2
[2022-06-17] MEDS ORDERED: IMMUNE GLOBULIN 10% 10 GM in IV 1 EA IV ONE ×2
[2022-06-17] MEDS ORDERED: FERR324T21 PO (00:09)
[2022-06-17] MEDS ORDERED: METO1TAB87 PO (00:09)
[2022-06-17] MEDS ORDERED: VITA100093 PO (00:09)
[2022-06-17] MEDS ORDERED: ELIQ5TAB PO (00:09)
[2022-06-17] MEDS ORDERED: DIGO0.123 PO (00:09)
[2022-06-17 00:11] LABS: RSV AMPLIFICATION NEGATIVE (NEGATIVE)
[2022-06-17] MEDS ORDERED: HYDR0.5C8 TOP (00:11)
[2022-06-17] MEDS ORDERED: HOME MED LIST COMPLETE! XX SCH (00:15)
[2022-06-17] MEDS ORDERED: hydrALAZINE 20MG/ML 1ML VIAL IV PRN (00:20)
[2022-06-17] MEDS ORDERED: IMMUNE GLOBULIN 10% 0 GM in IV 1 EA IV SCH (00:25)
[2022-06-17] MEDS: APIXABAN 5 MG TAB (ELIQUIS) PO SCH ×3 (01:13→21:49)
[2022-06-17] MEDS: MYCOPHENOLATE MOFETIL 250 MG CAP (J7517) PO SCH ×2 (06:12→14:15)
[2022-06-17] MEDS ORDERED: HYDROMORPHONE HCL 0.5 MG/ 0.5 ML SYRINGE IV ONE (08:15)
[2022-06-17] MEDS ORDERED: METOCLOPRAMIDE INJ 10MG/2ML VIAL IV ONE (08:30)
[2022-06-17] MEDS ORDERED: FIORICET TAB PO ONE (08:30)
[2022-06-17] MEDS: predniSONE 20 MG TAB PO SCH (08:34)
[2022-06-17] MEDS: DIGOXIN 0.125 MG TAB PO SCH (08:36)
[2022-06-17] MEDS ORDERED: KETOROLAC 30 MG/ML 1ML VIAL IV ONE (08:45)
[2022-06-17] MEDS: DICLOFENAC EPOLAMINE 1.3% PATCH TOP SCH ×2 (09:00→21:49)
[2022-06-17] MEDS ORDERED: MYCOPHENOLATE MOFETIL 250 MG CAP (J7517) PO SCH (09:00)
[2022-06-17] MEDS: PYRIDOSTIGMINE 60MG TABLET PO SCH ×4 (10:01→21:49)
[2022-06-17] MEDS: lisinopriL 5 MG TAB PO SCH ×2 (11:50→21:50)
[2022-06-18] VITALS (15 sets, daily range): BP systolic 122–164; BP diastolic 58–75
[2022-06-18] MEDS: MYCOPHENOLATE MOFETIL 250 MG CAP (J7517) PO SCH ×2 (05:41→14:59)
[2022-06-18 07:38] LABS: ALBUMIN 3.3 G/DL (3.2-5.2); ALKALINE PHOSPHATASE 55 U/L (46-116); ALT/SGPT 12 U/L (7.0-40); AST/SGOT 18 U/L (<34); BILIRUBIN,TOTAL 0.6 MG/DL (0.3-1.2); BLOOD UREA NITROGEN 27 MG/DL (9-23); CALCIUM LEVEL 8.9 MG/DL (8.3-10.6); CARBON DIOXIDE LEVEL 23 MMOL/L (20-31); CHLORIDE LEVEL 106 MMOL/L (98-107); CREATININE FOR GFR 1.22 MG/DL (0.70-1.30); GLOMERULAR FILTRATION RATE > 60.0 (>42); GLUCOSE, FASTING 100 MG/DL (74-106); POTASSIUM SERUM 4.2 MMOL/L (3.5-5.1); SODIUM LEVEL 138 MMOL/L (136-145); TOTAL PROTEIN 6.6 G/DL (5.7-8.2)
[2022-06-18 07:40] LABS: TOTAL 25(OH) VITAMIN D 45.5 NG/ML (20.0-100.0); VITAMIN B12 LEVEL 266 PG/ML (211-911)
[2022-06-18 07:42] LABS: CPK CREATINE PHOSPHOKINASE 70 U/L (46-171)
[2022-06-18] MEDS: DIGOXIN 0.125 MG TAB PO SCH (08:30)
[2022-06-18] MEDS: lisinopriL 5 MG TAB PO SCH ×2 (08:30→20:33)
[2022-06-18] MEDS: DICLOFENAC EPOLAMINE 1.3% PATCH TOP SCH ×2 (09:00→20:27)
[2022-06-18] MEDS: PYRIDOSTIGMINE 60MG TABLET PO SCH ×4 (09:22→20:26)
[2022-06-18] MEDS: APIXABAN 5 MG TAB (ELIQUIS) PO SCH ×2 (09:23→20:26)
[2022-06-18] MEDS: predniSONE 20 MG TAB PO SCH (09:23)
[2022-06-18] MEDS: IMMUNE GLOBULIN 10% 10 GM in IV 1 EA IV SCH (09:24)
[2022-06-18] MEDS: IMMUNE GLOBULIN 10% 40 GM in IV 1 EA IV SCH (11:12)
[2022-06-18] MEDS: CYANOCOBALAMIN 1,000MCG/ML 1ML VIAL IM SCH (13:53)
[2022-06-19] VITALS (12 sets, daily range): BP systolic 131–182; BP diastolic 62–81
[2022-06-19] MEDS: MYCOPHENOLATE MOFETIL 250 MG CAP (J7517) PO SCH ×2 (05:17→15:17)
[2022-06-19] MEDS ORDERED: predniSONE 10 MG TAB PO SCH (09:00)
[2022-06-19] MEDS: DIGOXIN 0.125 MG TAB PO SCH (09:00)
[2022-06-19] MEDS ORDERED: PYRI60TA2 PO (09:05)
[2022-06-19] MEDS ORDERED: PRED10TA2 PO (09:05)
[2022-06-19] MEDS ORDERED: B-12100010 PO (09:05)
[2022-06-19] MEDS ORDERED: PRED20TA PO (09:07)
[2022-06-19] MEDS: DICLOFENAC EPOLAMINE 1.3% PATCH TOP SCH (10:10)
[2022-06-19] MEDS: CYANOCOBALAMIN 1,000MCG/ML 1ML VIAL IM SCH (10:11)
[2022-06-19] MEDS: PYRIDOSTIGMINE 60MG TABLET PO SCH ×2 (10:11→13:13)
[2022-06-19] MEDS: APIXABAN 5 MG TAB (ELIQUIS) PO SCH (10:11)
[2022-06-19] MEDS: lisinopriL 5 MG TAB PO SCH (10:14)
[2022-06-19] MEDS: IMMUNE GLOBULIN 10% 40 GM in IV 1 EA IV SCH (11:06)
[2022-06-19] MEDS ORDERED: cloNIDine 0.1MG TABLET PO ONE (13:00)
[2022-06-19] MEDS ORDERED: lisinopriL 5 MG TAB PO ONE (14:00)
[2022-06-19] MEDS: IMMUNE GLOBULIN 10% 10 GM in IV 1 EA IV SCH (14:43)
[2022-06-19] MEDS ORDERED: LISI5TAB11 PO (15:04)
[2022-06-19] MEDS ORDERED: amLODIPine 5 MG TAB PO ONE (15:05)
[2022-06-19] MEDS ORDERED: SELF1KIT MC (15:05)
[2022-06-19] MEDS ORDERED: NITROGLYCERIN 2% OINT 1 GM *U/D* PKT TOP ONE (16:00)
[2022-06-19] MEDS ORDERED: ISOS5TA PO (16:18)
== END 2022-06-19 16:25 | disposition home or self-care (01) | DRG 57 ==
LOC: M ED 15:19 → M ED INP 23:02 → ENRESERV 06-17 12:14 → M PCU 06-17 13:04 → M MSPAV 06-18 22:24
PROVIDERS: ADMIT Internal Medicine; ATTEND General Practice
DX: G70.01 Myasthenia gravis with (acute) exacerbation (principal); I48.20 Chronic atrial fibrillation, unspecified; K21.9 Gastro-esophageal reflux disease without esophagitis; I16.0 Hypertensive urgency; I10 Essential (primary) hypertension; R00.1 Bradycardia, unspecified; E78.00 Pure hypercholesterolemia, unspecified; Z96.611 Presence of right artificial shoulder joint; Z96.612 Presence of left artificial shoulder joint; Z79.899 Other long term (current) drug therapy; Z79.52 Long term (current) use of systemic steroids; Z91.011 Allergy to milk products; Z88.5 Allergy status to narcotic agent; Z91.018 Allergy to other foods; K57.30 Diverticulosis of large intestine without perforation or abscess without bleeding; Z79.01 Long term (current) use of anticoagulants; Z95.0 Presence of cardiac pacemaker; E53.8 Deficiency of other specified B group vitamins

== ENCOUNTER 2022-07-28 17:27 | Emergency (ER) | payer MEDICARE, OTHER ==
[~2022-07-28] VITALS: Ht 172.7 cm; Wt 69.0 kg
[~2022-07-28 17:27] MED LIST changes: +B-12100010 PO; +DIGO0.123 PO; +ELIQ5TAB PO; +FERR324T21 PO; +HYDR0.5C8 TOP; +ISOS5TA PO; +LISI5TAB11 PO; +METO1TAB87 PO; +PRED10TA2 PO; +PRED20TA PO; +SELF1KIT MC
[2022-07-28] MEDS ORDERED: METO1TAB87 (17:39)
[2022-07-28] MEDS ORDERED: AMIO200T49 (17:39)
[2022-07-28] MEDS ORDERED: ROSU40TA4 (17:39)
[2022-07-28] MEDS ORDERED: ONDANSETRON 4MG 2ML VIAL IV ONE (18:20)
[2022-07-28 18:28] LABS: BASO % 0.2 % (0.0-1.0); EOS % 0.4 % (0.0-3.0); HEMATOCRIT 51.1 % (42.0-52.0); HEMOGLOBIN 16.7 g/dl (13.5-17.5); LYMPH # 0.9 10^3/uL (1.5-5.0); LYMPH % 11.4 % (24.0-44.0); MEAN CORPUSCULAR HEMOGLOBIN 30.2 pg (27.0-33.0); MEAN CORPUSCULAR HGB CONC 32.7 g/dl (32.0-36.5); MEAN CORPUSCULAR VOLUME 92.4 fl (80.0-96.0); MONO # 0.5 10^3/uL (0.0-0.8); MONO % 6.6 % (2.0-8.0); NEUTROPHILS # 6.7 10^3/uL (1.5-8.5); NEUTROPHILS % 81.2 % (36.0-66.0); PLATELET COUNT, AUTOMATED 174 10^3/uL (150-450); RED BLOOD COUNT 5.53 10^6/uL (4.30-6.10); WHITE BLOOD COUNT 8.2 10^3/uL (4.0-10.0)
[2022-07-28 18:53] LABS: DIGOXIN LEVEL < 0.1 NG/ML (0.8-2.0)
[2022-07-28 18:57] LABS: ALBUMIN 3.9 G/DL (3.2-5.2); ALKALINE PHOSPHATASE 55 U/L (46-116); ALT/SGPT 23 U/L (7.0-40); AST/SGOT 21 U/L (<34); BILIRUBIN,DIRECT 0.2 MG/DL (<0.4); BILIRUBIN,TOTAL 0.9 MG/DL (0.3-1.2); BLOOD UREA NITROGEN 20 MG/DL (9-23); CALCIUM LEVEL 9.5 MG/DL (8.3-10.6); CARBON DIOXIDE LEVEL 27 MMOL/L (20-31); CHLORIDE LEVEL 104 MMOL/L (98-107); CREATININE FOR GFR 1.43 MG/DL (0.70-1.30); GLOMERULAR FILTRATION RATE 51.3 (>42); GLUCOSE, FASTING 86 MG/DL (74-106); SODIUM LEVEL 139 MMOL/L (136-145); TOTAL PROTEIN 6.8 G/DL (5.7-8.2)
[2022-07-28 19:32] LABS: RSV AMPLIFICATION NEGATIVE (NEGATIVE)
[2022-07-28] MEDS ORDERED: ONDA4TAB6 PO (20:03)
[2022-07-28] MEDS ORDERED: ONDANSETRON 4MG ORAL DISINTEGRATING TAB PO ONE (20:05)
[2022-07-28 20:13] VITALS: BP 155/74
== END 2022-07-28 20:25 | disposition home or self-care (01) ==
LOC: M ED 17:27
DX: R11.2 Nausea with vomiting, unspecified (principal); I44.4 Left anterior fascicular block; I25.2 Old myocardial infarction; I10 Essential (primary) hypertension; E78.5 Hyperlipidemia, unspecified; K21.9 Gastro-esophageal reflux disease without esophagitis; Z91.013 Allergy to seafood; Z88.5 Allergy status to narcotic agent; Z91.018 Allergy to other foods; Z79.811 Long term (current) use of aromatase inhibitors; Z79.01 Long term (current) use of anticoagulants; Z79.83 Long term (current) use of bisphosphonates; Z79.899 Other long term (current) drug therapy
CPT/HCPCS: 80048; 80076; 80162; 85025; 87631; 93005; 93041; 94760; 96374; 99284; J2405

== ENCOUNTER → 2022-08-21 | Outpatient (REF) | payer MEDICARE, OTHER ==
[~2022-08-21] MED LIST changes: +AMIO200T49; +METO1TAB87; +ONDA4TAB6 PO
[2022-08-22 17:56] LABS: LIPASE 119 U/L (12-53)
[2022-08-22 17:58] LABS: AMYLASE 166 U/L (30-118)
== END ==
LOC: M LAB REF 16:24
PROVIDERS: ATTEND Nurse Practitioner Adult Health
DX: R10.13 Epigastric pain (principal)

== ENCOUNTER → 2022-09-04 | Outpatient (REF) | payer MEDICARE | LOC: M LAB REF 12:18 | PROVIDERS: ATTEND Nurse Practitioner Adult Health | DX: I11.9 Hypertensive heart disease without heart failure (principal) ==

== ENCOUNTER → 2022-09-15 | Outpatient (CLI) | payer MEDICARE ==
[~2022-09-15] MED LIST changes: +GASTROGRAFIN SOLUTION 30ML As Ordered ONE; +ISOVUE-370 76% 100ML VIAL As Ordered ONE
== END ==
LOC: M RAD 11:40
PROVIDERS: ATTEND Nurse Practitioner Adult Health
DX: R10.13 Epigastric pain (principal); K80.20 Calculus of gallbladder without cholecystitis without obstruction
CPT/HCPCS: 74177; Q9963; Q9967

== ENCOUNTER 2022-10-27 16:45 | Emergency (ER) | payer MEDICARE, OTHER ==
[~2022-10-27] VITALS: Ht 172.7 cm; Wt 73.0 kg
[~2022-10-27 16:45] MED LIST changes: -GASTROGRAFIN SOLUTION 30ML As Ordered ONE; -ISOVUE-370 76% 100ML VIAL As Ordered ONE
[2022-10-27] MEDS ORDERED: NS 500 ML IV ONE (17:15)
[2022-10-27] MEDS ORDERED: cefTRIAXone SOD 1 GM in D5W MINI-BAG PLUS 50 ML IV ONE (17:55)
[2022-10-27] MEDS ORDERED: DOXYCYCLINE HYCLATE 100MG TABLET PO ONE (18:00)
[2022-10-27] MEDS ORDERED: ACETAMINOPHEN 1000MG 100ML IV BAG IV ONE (18:10)
[2022-10-27 18:22] LABS: BASO % 0.6 % (0.0-1.0); EOS # 0.2 10^3/uL (0.0-0.5); EOS % 3.8 % (0.0-3.0); HEMATOCRIT 37.7 % (42.0-52.0); HEMOGLOBIN 12.6 g/dl (13.5-17.5); LYMPH # 0.6 10^3/uL (1.5-5.0); LYMPH % 9.3 % (24.0-44.0); MEAN CORPUSCULAR HEMOGLOBIN 30.6 pg (27.0-33.0); MEAN CORPUSCULAR HGB CONC 33.4 g/dl (32.0-36.5); MEAN CORPUSCULAR VOLUME 91.5 fl (80.0-96.0); MONO % 15.1 % (2.0-8.0); NEUTROPHILS # 4.5 10^3/uL (1.5-8.5); NEUTROPHILS % 70.9 % (36.0-66.0); PLATELET COUNT, AUTOMATED 128 10^3/uL (150-450); RED BLOOD COUNT 4.12 10^6/uL (4.30-6.10); WHITE BLOOD COUNT 6.4 10^3/uL (4.0-10.0)
[2022-10-27 18:39] LABS: CK-MB VALUE MASS < 1.0 NG/ML (<3.6)
[2022-10-27 18:41] LABS: BLOOD UREA NITROGEN 16 MG/DL (9-23); CALCIUM LEVEL 8.6 MG/DL (8.3-10.6); CARBON DIOXIDE LEVEL 24 MMOL/L (20-31); CHLORIDE LEVEL 104 MMOL/L (98-107); CPK CREATINE PHOSPHOKINASE 60 U/L (46-171); CREATININE FOR GFR 1.17 MG/DL (0.70-1.30); GLOMERULAR FILTRATION RATE > 60.0 (>42); GLUCOSE, FASTING 94 MG/DL (74-106); MB/CK RELATIVE INDEX 1.66 (< OR =4); POTASSIUM SERUM 3.6 MMOL/L (3.5-5.1); SODIUM LEVEL 138 MMOL/L (136-145)
[2022-10-27 18:44] LABS: THYROID STIMULATING HORMONE 4.542 uIU/ML (0.55-4.78)
[2022-10-27] MEDS ORDERED: PYRI60TA2 PO (19:09)
[2022-10-27] MEDS ORDERED: HOME MED LIST COMPLETE! XX SCH (19:10)
[2022-10-27] MEDS ORDERED: DOXY-443 PO (20:30)
[2022-10-27] MEDS ORDERED: ONDA4TAB6 PO (20:30)
[2022-10-27 20:58] VITALS: BP 123/60
== END 2022-10-27 20:59 | disposition home or self-care (01) ==
LOC: M ED 16:45
DX: U07.1 COVID-19 (principal); J18.1 Lobar pneumonia, unspecified organism; G70.00 Myasthenia gravis without (acute) exacerbation; Z91.013 Allergy to seafood; Z91.018 Allergy to other foods; Z88.5 Allergy status to narcotic agent; Z79.01 Long term (current) use of anticoagulants; Z79.810 Long term (current) use of selective estrogen receptor modulators (SERMs); Z79.83 Long term (current) use of bisphosphonates; Z79.899 Other long term (current) drug therapy
CPT/HCPCS: 71046; 80048; 82550; 82553; 84443; 84484; 85025; 86850; 86900; 86901; 87486; 87581; 87633; 87798; 93005; 96365; 96366; 96375; 99284; J0131; J0696; J1100

== ENCOUNTER → 2023-05-15 | Outpatient (REF) | payer OTHER ==
[~2023-05-15] MED LIST changes: +DICL100G10 TOP; -DICL1GEL3 TOP; +DOXY-443 PO
== END ==
LOC: M LAB REF 13:26
PROVIDERS: ATTEND Nurse Practitioner Adult Health
DX: I48.0 Paroxysmal atrial fibrillation (principal)

== ENCOUNTER 2023-09-10 12:23 | Inpatient (IN) | payer MEDICARE ==
[~2023-09-10] VITALS: Ht 172.7 cm; Wt 73.9 kg
[2023-09-10 14:17] LABS: BASO % 0.5 % (0.0-1.0); EOS # 0.1 10^3/uL (0.0-0.5); EOS % 1.2 % (0.0-3.0); HEMOGLOBIN 11.3 g/dl (13.5-17.5); LYMPH # 0.6 10^3/uL (1.5-5.0); LYMPH % 7.7 % (24.0-44.0); MEAN CORPUSCULAR HEMOGLOBIN 29.7 pg (27.0-33.0); MEAN CORPUSCULAR HGB CONC 33.2 g/dl (32.0-36.5); MEAN CORPUSCULAR VOLUME 89.2 fl (80.0-96.0); MONO # 0.8 10^3/uL (0.0-0.8); MONO % 9.4 % (2.0-8.0); NEUTROPHILS # 6.5 10^3/uL (1.5-8.5); NEUTROPHILS % 80.8 % (36.0-66.0); PLATELET COUNT, AUTOMATED 242 10^3/uL (150-450); RED BLOOD COUNT 3.81 10^6/uL (4.30-6.10); WHITE BLOOD COUNT 8.1 10^3/uL (4.0-10.0)
[2023-09-10 14:28] LABS: INR 1.5; PROTHROMBIN TIME 17.6 SECONDS (12.5-14.5)
[2023-09-10 14:36] LABS: CK-MB VALUE MASS < 1.0 NG/ML (<3.6)
[2023-09-10 14:38] LABS: CPK CREATINE PHOSPHOKINASE 78 U/L (46-171); MB/CK RELATIVE INDEX 1.28 (< OR =4)
[2023-09-10 14:39] LABS: ALBUMIN 2.8 G/DL (3.2-5.2); ALKALINE PHOSPHATASE 81 U/L (46-116); ALT/SGPT 38 U/L (7.0-40); AST/SGOT 26 U/L (<34); BILIRUBIN,DIRECT 0.3 MG/DL (<0.4); BILIRUBIN,TOTAL 0.7 MG/DL (0.3-1.2); BLOOD UREA NITROGEN 14 MG/DL (9-23); CALCIUM LEVEL 8.7 MG/DL (8.3-10.6); CARBON DIOXIDE LEVEL 28 MMOL/L (20-31); CHLORIDE LEVEL 108 MMOL/L (98-107); CREATININE FOR GFR 0.95 MG/DL (0.70-1.30); GLOMERULAR FILTRATION RATE > 60.0 (>42); GLUCOSE, FASTING 130 MG/DL (74-106); POTASSIUM SERUM 3.5 MMOL/L (3.5-5.1); SODIUM LEVEL 143 MMOL/L (136-145); TOTAL PROTEIN 5.6 G/DL (5.7-8.2)
[2023-09-10 14:40] LABS: THYROXINE (T4) 8.3 UG/DL (4.5-10.9)
[2023-09-10 14:41] LABS: THYROID STIMULATING HORMONE 0.401 uIU/ML (0.55-4.78)
[2023-09-10] MEDS ORDERED: ISOVUE-370 76% 100ML VIAL As Ordered ONE (14:44)
[2023-09-10 15:52] LABS: CK-MB VALUE MASS < 1.0 NG/ML (<3.6)
[2023-09-10 15:53] LABS: CPK CREATINE PHOSPHOKINASE 72 U/L (46-171); MB/CK RELATIVE INDEX 1.38 (< OR =4)
[2023-09-10] MEDS: IPRATROPIUM 0.5MG/ALBUTEROL 2.5MG INH SOL UD 3ML (DUONEB) NEB ONE (17:01)
[2023-09-10] MEDS: DOXYCYCLINE HYCLATE 100MG TABLET PO ONE (17:10)
[2023-09-10] MEDS: methylPREDNISolone 125MG 2ML VIAL IV ONE (17:11)
[2023-09-10] MEDS: cefTRIAXone SOD 1 GM in D5W MINI-BAG PLUS 50 ML IV ONE ×2 (17:11→19:34)
[2023-09-10] MEDS: CETIRIZINE (ZyrTEC) 10 MG TAB PO ONE (19:34)
[2023-09-10] MEDS: MONTELUKAST 10 MG TAB PO ONE (19:34)
[2023-09-10] MEDS ORDERED: IPRATROPIUM 0.5MG/ALBUTEROL 2.5MG INH SOL UD 3ML (DUONEB) NEB SCH (20:00)
[2023-09-10 20:28] LABS: TOTAL 25(OH) VITAMIN D 31.2 NG/ML (20.0-100.0); VITAMIN B12 LEVEL 986 PG/ML (211-911)
[2023-09-10] MEDS ORDERED: PYRIDOSTIGMINE 60MG TABLET PO SCH (21:00)
[2023-09-10] MEDS ORDERED: ONDA4TAB6 PO (21:04)
[2023-09-10] MEDS ORDERED: ALBU8.5H INH (21:04)
[2023-09-10] MEDS ORDERED: LISI10TA22 PO (21:04)
[2023-09-10] MEDS ORDERED: DIGO0.123 PO (21:04)
[2023-09-10] MEDS ORDERED: ANOR1AER INH (21:04)
[2023-09-10] MEDS ORDERED: ONETAB32 PO (21:04)
[2023-09-10] MEDS ORDERED: VITA-168 PO (21:04)
[2023-09-10] MEDS ORDERED: FLUTICASONE PROP 0.05% NASAL SPRAY 16 GM (FLONASE) NARES ONE (21:05)
[2023-09-10] MEDS ORDERED: HOME MED LIST COMPLETE! XX SCH ×2 (21:05→22:15)
[2023-09-10] MEDS: guaiFENesin ER TABLET 600 MG TAB PO SCH (21:44)
[2023-09-10] MEDS ORDERED: REFR0.5D8 OU (22:10)
[2023-09-10] MEDS ORDERED: PYRI60TA2 PO (22:10)
[2023-09-10] MEDS: APIXABAN 5 MG TAB (ELIQUIS) PO SCH (22:45)
[2023-09-10] MEDS: ROSUVASTATIN 10 MG TAB (CRESTOR) PO SCH (22:46)
[2023-09-10] MEDS: LEVALBUTEROL 1.25MG 0.5ML CONCENTRATE NEB INH SCH (23:04)
[2023-09-10] MEDS: IPRATROPIUM 0.02% SOLN 0.5MG 2.5ML NEB INH SCH (23:04)
[2023-09-11] MEDS ORDERED: PILL CUTTER 1 EACH XX PRN (01:05)
[2023-09-11 01:12] VITALS: BP 137/74; TEMP 97.7; O2SAT 96
[2023-09-11] MEDS: PYRIDOSTIGMINE 60MG TABLET PO SCH (01:26)
[2023-09-11] MEDS: methylPREDNISolone 125MG 2ML VIAL IV SCH (01:41)
[2023-09-11] MEDS: METOPROLOL TART 25 MG TABLET PO ONE (01:41)
[2023-09-11] MEDS: MYCOPHENOLATE MOFETIL 250 MG CAP (J7517) PO SCH (05:08)
[2023-09-11 05:09] VITALS: BP 163/70; TEMP 98.2; O2SAT 96
[2023-09-11 05:12] LABS: EOS % 0.2 % (0.0-3.0); HEMATOCRIT 36.1 % (42.0-52.0); HEMOGLOBIN 12.1 g/dl (13.5-17.5); LYMPH # 0.3 10^3/uL (1.5-5.0); LYMPH % 5.1 % (24.0-44.0); MEAN CORPUSCULAR HEMOGLOBIN 29.4 pg (27.0-33.0); MEAN CORPUSCULAR HGB CONC 33.5 g/dl (32.0-36.5); MEAN CORPUSCULAR VOLUME 87.8 fl (80.0-96.0); MONO # 0.1 10^3/uL (0.0-0.8); MONO % 1.3 % (2.0-8.0); NEUTROPHILS # 5.1 10^3/uL (1.5-8.5); NEUTROPHILS % 92.9 % (36.0-66.0); PLATELET COUNT, AUTOMATED 272 10^3/uL (150-450); RED BLOOD COUNT 4.11 10^6/uL (4.30-6.10); WHITE BLOOD COUNT 5.5 10^3/uL (4.0-10.0)
[2023-09-11 05:45] LABS: BLOOD UREA NITROGEN 16 MG/DL (9-23); CARBON DIOXIDE LEVEL 27 MMOL/L (20-31); CHLORIDE LEVEL 108 MMOL/L (98-107); CREATININE FOR GFR 0.93 MG/DL (0.70-1.30); GLOMERULAR FILTRATION RATE > 60.0 (>42); GLUCOSE, FASTING 194 MG/DL (74-106); SODIUM LEVEL 140 MMOL/L (136-145)
[2023-09-11] MEDS: DOXYCYCLINE HYCLATE 100 MG in D5W MINI-BAG PLUS 100 ML IV SCH (06:51)
[2023-09-11 07:24] VITALS: BP 180/82; TEMP 98.1; O2SAT 94
[2023-09-11] MEDS: FLUTICASONE PROP 0.05% NASAL SPRAY 16 GM (FLONASE) NARES SCH (08:06)
[2023-09-11] MEDS: CETIRIZINE (ZyrTEC) 10 MG TAB PO SCH (08:52)
[2023-09-11] MEDS: VITAMIN D 1,000 INTERNATIONAL UNITS TABLET PO SCH (08:52)
[2023-09-11] MEDS: OMEPRAZOLE 20MG CAP PO SCH (08:52)
[2023-09-11] MEDS: MONTELUKAST 10 MG TAB PO SCH (08:52)
[2023-09-11] MEDS: FERROUS GLUCONATE 324 MG TAB PO SCH (08:52)
[2023-09-11] MEDS: METOPROLOL TART 25 MG TABLET PO SCH (08:53)
[2023-09-11 12:00] VITALS: BP 161/73; TEMP 97.8; O2SAT 97
[2023-09-11 12:58] VITALS: BP 150/70
[2023-09-11] MEDS: cefTRIAXone SOD 2 GM in D5W MINI-BAG PLUS 50 ML IV SCH (16:36)
[2023-09-11 20:20] VITALS: BP 143/81; TEMP 98.4; O2SAT 94
[2023-09-11] MEDS: DOXYCYCLINE HYCLATE 100MG TABLET PO SCH (20:37)
[2023-09-12] VITALS (13 sets, daily range): BP systolic 137–158; BP diastolic 54–70; TEMP 97.6–98.4; O2SAT 93–97
[2023-09-12 05:50] LABS: BASO % 0.1 % (0.0-1.0); HEMATOCRIT 33.5 % (42.0-52.0); HEMOGLOBIN 11.1 g/dl (13.5-17.5); LYMPH # 0.4 10^3/uL (1.5-5.0); LYMPH % 2.2 % (24.0-44.0); MEAN CORPUSCULAR HEMOGLOBIN 29.5 pg (27.0-33.0); MEAN CORPUSCULAR HGB CONC 33.1 g/dl (32.0-36.5); MEAN CORPUSCULAR VOLUME 89.1 fl (80.0-96.0); MONO # 0.4 10^3/uL (0.0-0.8); MONO % 2.1 % (2.0-8.0); NEUTROPHILS # 16.1 10^3/uL (1.5-8.5); NEUTROPHILS % 95.2 % (36.0-66.0); PLATELET COUNT, AUTOMATED 284 10^3/uL (150-450); RED BLOOD COUNT 3.76 10^6/uL (4.30-6.10); WHITE BLOOD COUNT 16.9 10^3/uL (4.0-10.0)
[2023-09-12 06:10] LABS: BLOOD UREA NITROGEN 25 MG/DL (9-23); CALCIUM LEVEL 8.8 MG/DL (8.3-10.6); CARBON DIOXIDE LEVEL 23 MMOL/L (20-31); CHLORIDE LEVEL 108 MMOL/L (98-107); GLOMERULAR FILTRATION RATE > 60.0 (>42); GLUCOSE, FASTING 176 MG/DL (74-106); POTASSIUM SERUM 3.6 MMOL/L (3.5-5.1); SODIUM LEVEL 144 MMOL/L (136-145)
[2023-09-12] MEDS: DIGOXIN 0.125 MG TAB PO SCH (09:11)
[2023-09-12] MEDS: methylPREDNISolone 40MG 1ML VIAL IV SCH (20:46)
[2023-09-13 05:06] VITALS: BP 152/78; TEMP 97.7; O2SAT 95
[2023-09-13 08:26] LABS: BASO % 0.1 % (0.0-1.0); HEMATOCRIT 36.1 % (42.0-52.0); HEMOGLOBIN 11.7 g/dl (13.5-17.5); LYMPH # 0.5 10^3/uL (1.5-5.0); LYMPH % 2.5 % (24.0-44.0); MEAN CORPUSCULAR HEMOGLOBIN 29.3 pg (27.0-33.0); MEAN CORPUSCULAR HGB CONC 32.4 g/dl (32.0-36.5); MEAN CORPUSCULAR VOLUME 90.3 fl (80.0-96.0); MONO # 0.8 10^3/uL (0.0-0.8); MONO % 4.1 % (2.0-8.0); NEUTROPHILS # 17.8 10^3/uL (1.5-8.5); NEUTROPHILS % 91.7 % (36.0-66.0); PLATELET COUNT, AUTOMATED 334 10^3/uL (150-450); WHITE BLOOD COUNT 19.4 10^3/uL (4.0-10.0)
[2023-09-13 08:51] LABS: BLOOD UREA NITROGEN 31 MG/DL (9-23); CALCIUM LEVEL 8.8 MG/DL (8.3-10.6); CARBON DIOXIDE LEVEL 21 MMOL/L (20-31); CHLORIDE LEVEL 107 MMOL/L (98-107); CREATININE FOR GFR 1.02 MG/DL (0.70-1.30); GLOMERULAR FILTRATION RATE > 60.0 (>42); GLUCOSE, FASTING 180 MG/DL (74-106); POTASSIUM SERUM 3.9 MMOL/L (3.5-5.1); SODIUM LEVEL 140 MMOL/L (136-145)
[2023-09-13 14:00] VITALS: BP 122/68; TEMP 99.3; O2SAT 97
[2023-09-13 19:54] VITALS: BP 154/70; TEMP 97.6; O2SAT 98
[2023-09-14 06:18] VITALS: BP 162/70; TEMP 97.2; O2SAT 97
[2023-09-14] MEDS ORDERED: AZIT-12 PO (08:08)
[2023-09-14] MEDS ORDERED: DOXY-444 PO (08:08)
[2023-09-14] MEDS ORDERED: CEFD300CAP PO (08:08)
[2023-09-14] MEDS ORDERED: ALBU2.5V10 INH (08:08)
[2023-09-14] MEDS ORDERED: PRED10TA2 PO (08:08)
[2023-09-14] MEDS ORDERED: BACI1CAP PO (08:08)
[2023-09-14 08:39] VITALS: BP 171/77
[2023-09-14 08:43] LABS: BASO % 0.1 % (0.0-1.0); HEMOGLOBIN 11.6 g/dl (13.5-17.5); LYMPH # 0.5 10^3/uL (1.5-5.0); LYMPH % 4.2 % (24.0-44.0); MEAN CORPUSCULAR HEMOGLOBIN 29.7 pg (27.0-33.0); MEAN CORPUSCULAR HGB CONC 32.2 g/dl (32.0-36.5); MEAN CORPUSCULAR VOLUME 92.1 fl (80.0-96.0); MONO # 0.6 10^3/uL (0.0-0.8); MONO % 5.7 % (2.0-8.0); NEUTROPHILS # 9.7 10^3/uL (1.5-8.5); NEUTROPHILS % 87.8 % (36.0-66.0); PLATELET COUNT, AUTOMATED 303 10^3/uL (150-450); RED BLOOD COUNT 3.91 10^6/uL (4.30-6.10)
[2023-09-14 09:00] LABS: BLOOD UREA NITROGEN 27 MG/DL (9-23); CALCIUM LEVEL 8.6 MG/DL (8.3-10.6); CARBON DIOXIDE LEVEL 24 MMOL/L (20-31); CHLORIDE LEVEL 107 MMOL/L (98-107); CREATININE FOR GFR 0.99 MG/DL (0.70-1.30); GLOMERULAR FILTRATION RATE > 60.0 (>42); GLUCOSE, FASTING 170 MG/DL (74-106); POTASSIUM SERUM 4.2 MMOL/L (3.5-5.1); SODIUM LEVEL 139 MMOL/L (136-145)
[2023-09-17 07:35] LABS: ACETYLCHOLINE RCPTOR BINDING A 1.14 nmol/L (0.00-0.24)
== END 2023-09-14 10:55 | disposition home health service (06) | DRG 194 ==
LOC: M ED 13:54 → M ED INP 18:01 → ENRESERV 23:24 → M PCU 09-11 01:13 → M MS4PR 09-12 14:58
PROVIDERS: ADMIT General Practice; ATTEND General Practice
DX: J12.3 Human metapneumovirus pneumonia (principal); I48.20 Chronic atrial fibrillation, unspecified; J98.8 Other specified respiratory disorders; I49.5 Sick sinus syndrome; G70.00 Myasthenia gravis without (acute) exacerbation; K57.90 Diverticulosis of intestine, part unspecified, without perforation or abscess without bleeding; Z95.0 Presence of cardiac pacemaker; K21.9 Gastro-esophageal reflux disease without esophagitis; N40.0 Benign prostatic hyperplasia without lower urinary tract symptoms; D50.9 Iron deficiency anemia, unspecified; Z79.899 Other long term (current) drug therapy; Z91.013 Allergy to seafood; Z88.5 Allergy status to narcotic agent; Z91.018 Allergy to other foods; Z96.611 Presence of right artificial shoulder joint; Z96.612 Presence of left artificial shoulder joint; Z87.891 Personal history of nicotine dependence

== ENCOUNTER → 2024-05-12 | Outpatient (CLI) | payer MEDICARE, OTHER ==
[~2024-05-12] MED LIST changes: +ALBU2.5V10 INH; +ALBU8.5H INH; +ANOR1AER INH; +AZIT-12 PO; +BACI1CAP PO; +CEFD300CAP PO; +DOXY-440 PO; +DOXY-441 PO; -DOXY-443 PO; +LISI10TA22 PO; +ONDA-282 PO; -ONDA4TAB6 PO; +ONETAB32 PO; +REFR0.5D8 OU; -ROSU40TA4; -ROSU40TA4 PO; +ROSU40TA81; +ROSU40TA81 PO; +VITA-168 PO
[2024-05-12 13:24] LABS: BASO # 0.1 10^3/uL (0.0-0.2); EOS # 0.1 10^3/uL (0.0-0.5); EOS % 2.2 % (0.0-3.0); HEMATOCRIT 41.3 % (42.0-52.0); HEMOGLOBIN 13.6 g/dl (13.5-17.5); LYMPH % 18.9 % (24.0-44.0); MEAN CORPUSCULAR HEMOGLOBIN 30.6 pg (27.0-33.0); MEAN CORPUSCULAR HGB CONC 32.9 g/dl (32.0-36.5); MONO # 0.6 10^3/uL (0.0-0.8); MONO % 11.5 % (2.0-8.0); NEUTROPHILS # 3.3 10^3/uL (1.5-8.5); NEUTROPHILS % 66.2 % (36.0-66.0); PLATELET COUNT, AUTOMATED 142 10^3/uL (150-450); RED BLOOD COUNT 4.44 10^6/uL (4.30-6.10)
[2024-05-12 13:54] LABS: ALBUMIN 3.7 G/DL (3.2-5.2); ALKALINE PHOSPHATASE 67 U/L (40-129); ALT/SGPT 22 U/L (7.0-40); AST/SGOT 22 U/L (<34); BILIRUBIN,TOTAL 0.5 MG/DL (0.3-1.2); BLOOD UREA NITROGEN 21 MG/DL (9-23); CALCIUM LEVEL 9.5 MG/DL (8.3-10.6); CARBON DIOXIDE LEVEL 27 MMOL/L (20-31); CHLORIDE LEVEL 111 MMOL/L (98-107); CREATININE FOR GFR 1.24 MG/DL (0.70-1.30); GLOMERULAR FILTRATION RATE > 60.0 (>42); GLUCOSE, FASTING 100 MG/DL (74-106); POTASSIUM SERUM 4.1 MMOL/L (3.5-5.1); SODIUM LEVEL 144 MMOL/L (136-145); TOTAL PROTEIN 6.1 G/DL (5.7-8.2)
== END ==
LOC: M LAB 12:48
PROVIDERS: ATTEND Internal Medicine Cardiovascular Disease
DX: I48.0 Paroxysmal atrial fibrillation (principal); R06.02 Shortness of breath; I35.1 Nonrheumatic aortic (valve) insufficiency; I11.9 Hypertensive heart disease without heart failure; I27.23 Pulmonary hypertension due to lung diseases and hypoxia; R94.31 Abnormal electrocardiogram [ECG] [EKG]

== ENCOUNTER → 2024-06-23 | Outpatient (CLI) | payer OTHER | LOC: M WUC 13:55 | PROVIDERS: ATTEND Nurse Practitioner Family | DX: R06.02 Shortness of breath (principal); R05.9 Cough, unspecified ==

== ENCOUNTER → 2024-06-26 | Outpatient (REF) | payer OTHER ==
[~2024-06-26] MED LIST changes: +ACET-683 PO; +MUCI600T31 PO; +OSEL75CA2 PO; +PREG25CA3 PO
== END ==
LOC: M LAB REF 12:08
PROVIDERS: ATTEND Nurse Practitioner Family
DX: R04.2 Hemoptysis (principal)

== ENCOUNTER 2024-06-29 08:56 | Observation (INO) | payer MEDICARE, OTHER ==
[~2024-06-29] VITALS: Ht 172.7 cm; Wt 70.6 kg
[2024-06-29] VITALS (12 sets, daily range): BP systolic 148–175; BP diastolic 67–76; TEMP 97.4–97.9; O2SAT 94–99
[~2024-06-29 08:56] MED LIST changes: -ACET-683 PO; -MUCI600T31 PO; -OSEL75CA2 PO; -PREG25CA3 PO
[2024-06-29] MEDS: IPRATROPIUM 0.5MG/ALBUTEROL 2.5MG INH SOL UD 3ML (DUONEB) NEB ONE (10:20)
[2024-06-29 10:32] LABS: BASO % 0.3 % (0.0-1.0); EOS # 0.1 10^3/uL (0.0-0.5); EOS % 2.4 % (0.0-3.0); HEMATOCRIT 36.7 % (42.0-52.0); HEMOGLOBIN 12.1 g/dl (13.5-17.5); LYMPH # 0.6 10^3/uL (1.5-5.0); LYMPH % 18.2 % (24.0-44.0); MEAN CORPUSCULAR HEMOGLOBIN 29.9 pg (27.0-33.0); MEAN CORPUSCULAR VOLUME 90.6 fl (80.0-96.0); MONO # 0.5 10^3/uL (0.0-0.8); MONO % 13.7 % (2.0-8.0); NEUTROPHILS # 2.2 10^3/uL (1.5-8.5); NEUTROPHILS % 65.4 % (36.0-66.0); PLATELET COUNT, AUTOMATED 126 10^3/uL (150-450); RED BLOOD COUNT 4.05 10^6/uL (4.30-6.10); WHITE BLOOD COUNT 3.3 10^3/uL (4.0-10.0)
[2024-06-29 11:06] LABS: ALBUMIN 2.4 G/DL (3.2-5.2); ALKALINE PHOSPHATASE 51 U/L (40-129); ALT/SGPT 20 U/L (7.0-40); AST/SGOT 23 U/L (<34); BILIRUBIN,DIRECT 0.2 MG/DL (<0.4); BILIRUBIN,TOTAL 0.4 MG/DL (0.3-1.2); BLOOD UREA NITROGEN 13 MG/DL (9-23); CALCIUM LEVEL 6.6 MG/DL (8.3-10.6); CARBON DIOXIDE LEVEL 23 MMOL/L (20-31); CHLORIDE LEVEL 117 MMOL/L (98-107); CREATININE FOR GFR 0.68 MG/DL (0.70-1.30); GLOMERULAR FILTRATION RATE > 60.0 (>42); GLUCOSE, FASTING 79 MG/DL (74-106); POTASSIUM SERUM 3.1 MMOL/L (3.5-5.1); SODIUM LEVEL 148 MMOL/L (136-145); TOTAL PROTEIN 4.3 G/DL (5.7-8.2)
[2024-06-29] MEDS ORDERED: ACET-683 PO (12:23)
[2024-06-29] MEDS ORDERED: PREG25CA3 PO (12:30)
[2024-06-29] MEDS ORDERED: HOME MED LIST COMPLETE! XX SCH (12:35)
[2024-06-29] MEDS ORDERED: PROCHLORPERAZINE 5MG TAB PO PRN (13:25)
[2024-06-29] MEDS ORDERED: IPRATROPIUM 0.5MG/ALBUTEROL 2.5MG INH SOL UD 3ML (DUONEB) NEB PRN (13:25)
[2024-06-29 14:08] LABS: MAGNESIUM LEVEL 1.2 MG/DL (1.8-2.4)
[2024-06-29] MEDS: IPRATROPIUM 0.5MG/ALBUTEROL 2.5MG INH SOL UD 3ML (DUONEB) NEB SCH (14:51)
[2024-06-29] MEDS: LR 1,000 ML IV SCH (14:54)
[2024-06-29 15:05] LABS: ABG BASE EXCESS -1.5 (-2.0-2.0); ABG HCO3 21.3 MMOL/L (22.0-26.0); ABG O2 SATURATION 97.1 % (95.0-99.0); ABG PARTIAL PRESSURE CO2 30.1 mmHg (35.0-45.0); ABG PARTIAL PRESSURE O2 85.5 mmHg (75.0-100.0); ABG STANDARD HCO3 23.2 MMOL/L. (22.0-26.0); ABG TOTAL CO2 22.2 MMOL/L (23.0-31.0); ABG pH (ARTERIAL) 7.468 UNITS (7.350-7.450)
[2024-06-29] MEDS: OMEPRAZOLE 20MG CAP PO SCH (16:35)
[2024-06-29] MEDS: OSELTAMIVIR PHOSPHATE 75 MG CAP (TAMIFLU) PO ONE (16:36)
[2024-06-29] MEDS: POTASSIUM CHLORIDE 10MEQ SR TABLET PO ONE ×2 (16:36→18:23)
[2024-06-29] MEDS: ACETAMINOPHEN 500 MG TAB PO ONE (17:00)
[2024-06-29] MEDS: MAG SULF 1GM/100ML (MAG RUN) 1 GM in IV 1 EA IV SCH (17:01)
[2024-06-29] MEDS: MYCOPHENOLATE MOFETIL 250 MG CAP (J7517) PO SCH (18:21)
[2024-06-29] MEDS: PYRIDOSTIGMINE 60MG TABLET PO SCH (18:22)
[2024-06-29] MEDS: ADVAIR HFA 115/21MCG INHALER INH SCH (19:17)
[2024-06-29] MEDS: PREGABALIN 25 MG CAP (LYRICA) PO SCH (20:48)
[2024-06-29] MEDS: ROSUVASTATIN 10 MG TAB (CRESTOR) PO SCH (20:48)
[2024-06-29] MEDS: APIXABAN 5 MG TAB (ELIQUIS) PO SCH (20:49)
[2024-06-29] MEDS: guaiFENesin ER TABLET 600 MG TAB PO SCH (20:49)
[2024-06-29] MEDS: OSELTAMIVIR PHOSPHATE 75 MG CAP (TAMIFLU) PO SCH (20:49)
[2024-06-29] MEDS: METOPROLOL TART 25 MG TABLET PO SCH (20:50)
[2024-06-29] MEDS: ONDANSETRON 4MG ORAL DISINTEGRATING TAB PO PRN (23:40)
[2024-06-30] VITALS (18 sets, daily range): BP systolic 146–160; BP diastolic 70–73; TEMP 97.1–98.5; O2SAT 91–100
[2024-06-30 06:09] LABS: HEMATOCRIT 35.7 % (42.0-52.0); HEMOGLOBIN 11.5 g/dl (13.5-17.5); MEAN CORPUSCULAR HEMOGLOBIN 29.3 pg (27.0-33.0); MEAN CORPUSCULAR HGB CONC 32.2 g/dl (32.0-36.5); MEAN CORPUSCULAR VOLUME 91.1 fl (80.0-96.0); PLATELET COUNT, AUTOMATED 119 10^3/uL (150-450); RED BLOOD COUNT 3.92 10^6/uL (4.30-6.10); WHITE BLOOD COUNT 3.8 10^3/uL (4.0-10.0)
[2024-06-30 06:37] LABS: BLOOD UREA NITROGEN 12 MG/DL (9-23); CALCIUM LEVEL 8.1 MG/DL (8.3-10.6); CARBON DIOXIDE LEVEL 26 MMOL/L (20-31); CHLORIDE LEVEL 109 MMOL/L (98-107); GLOMERULAR FILTRATION RATE > 60.0 (>42); GLUCOSE, FASTING 96 MG/DL (74-106); MAGNESIUM LEVEL 2.1 MG/DL (1.8-2.4); POTASSIUM SERUM 4.1 MMOL/L (3.5-5.1); SODIUM LEVEL 144 MMOL/L (136-145)
[2024-06-30] MEDS: ACETAMINOPHEN 500 MG TAB PO PRN (07:14)
[2024-06-30] MEDS: TIOTROPIUM INHALER/CAPSULE (SPIRIVA) INH SCH (07:56)
[2024-06-30] MEDS ORDERED: DIGOXIN 0.125 MG TAB PO SCH (09:00)
[2024-06-30] MEDS: VITAMIN D 1,000 INTERNATIONAL UNITS TABLET PO SCH (09:54)
[2024-06-30] MEDS: DIGOXIN 0.125 MG TAB PO SCH (10:24)
[2024-06-30] MEDS: OSELTAMIVIR PHOSPHATE 75 MG CAP (TAMIFLU) PO SCH (11:14)
[2024-07-01] VITALS (32 sets, daily range): BP systolic 123–160; BP diastolic 60–90; TEMP 97.8–98.5; O2SAT 92–100
[2024-07-01] MEDS: OSELTAMIVIR PHOSPHATE 75 MG CAP (TAMIFLU) PO SCH (08:36)
[2024-07-01] MEDS ORDERED: ISOVUE-370 76% 100ML VIAL As Ordered ONE (09:00)
[2024-07-01 09:32] LABS: BASO % 0.2 % (0.0-1.0); EOS % 0.8 % (0.0-3.0); HEMOGLOBIN 11.5 g/dl (13.5-17.5); LYMPH # 0.5 10^3/uL (1.5-5.0); LYMPH % 10.2 % (24.0-44.0); MEAN CORPUSCULAR HEMOGLOBIN 29.5 pg (27.0-33.0); MEAN CORPUSCULAR HGB CONC 32.9 g/dl (32.0-36.5); MEAN CORPUSCULAR VOLUME 89.7 fl (80.0-96.0); MONO # 0.5 10^3/uL (0.0-0.8); NEUTROPHILS # 3.7 10^3/uL (1.5-8.5); NEUTROPHILS % 77.4 % (36.0-66.0); PLATELET COUNT, AUTOMATED 123 10^3/uL (150-450); WHITE BLOOD COUNT 4.8 10^3/uL (4.0-10.0)
[2024-07-01 10:02] LABS: BLOOD UREA NITROGEN 11 MG/DL (9-23); CARBON DIOXIDE LEVEL 24 MMOL/L (20-31); CHLORIDE LEVEL 110 MMOL/L (98-107); CREATININE FOR GFR 0.86 MG/DL (0.70-1.30); GLOMERULAR FILTRATION RATE > 60.0 (>42); GLUCOSE, FASTING 136 MG/DL (74-106); POTASSIUM SERUM 3.8 MMOL/L (3.5-5.1); SODIUM LEVEL 142 MMOL/L (136-145)
[2024-07-01] MEDS: FUROSEMIDE 20MG/2ML VIAL IV ONE (13:01)
[2024-07-02] VITALS (10 sets, daily range): BP systolic 162–166; BP diastolic 70–72; TEMP 97.4–98; O2SAT 95–98
[2024-07-02 07:22] LABS: BASO % 0.6 % (0.0-1.0); BLOOD UREA NITROGEN 12 MG/DL (9-23); CALCIUM LEVEL 8.2 MG/DL (8.3-10.6); CARBON DIOXIDE LEVEL 26 MMOL/L (20-31); CHLORIDE LEVEL 110 MMOL/L (98-107); CREATININE FOR GFR 0.93 MG/DL (0.70-1.30); EOS # 0.1 10^3/uL (0.0-0.5); EOS % 2.9 % (0.0-3.0); GLOMERULAR FILTRATION RATE > 60.0 (>42); GLUCOSE, FASTING 93 MG/DL (74-106); HEMATOCRIT 35.1 % (42.0-52.0); HEMOGLOBIN 11.7 g/dl (13.5-17.5); LYMPH # 0.6 10^3/uL (1.5-5.0); LYMPH % 18.4 % (24.0-44.0); MAGNESIUM LEVEL 1.8 MG/DL (1.8-2.4); MEAN CORPUSCULAR HGB CONC 33.3 g/dl (32.0-36.5); MONO # 0.4 10^3/uL (0.0-0.8); MONO % 12.1 % (2.0-8.0); NEUTROPHILS # 2.3 10^3/uL (1.5-8.5); NEUTROPHILS % 65.4 % (36.0-66.0); PLATELET COUNT, AUTOMATED 119 10^3/uL (150-450); POTASSIUM SERUM 3.8 MMOL/L (3.5-5.1); SODIUM LEVEL 145 MMOL/L (136-145); WHITE BLOOD COUNT 3.5 10^3/uL (4.0-10.0)
[2024-07-02] MEDS ORDERED: OSEL75CA2 PO (10:05)
[2024-07-02] MEDS ORDERED: MUCI600T31 PO (10:05)
== END 2024-07-02 13:46 | disposition home or self-care (01) ==
LOC: M ED 08:56 → M ED INP 13:22 → M PCU 15:39
PROVIDERS: ADMIT Internal Medicine; ATTEND Internal Medicine
DX: J10.1 Influenza due to other identified influenza virus with other respiratory manifestations (principal); G70.00 Myasthenia gravis without (acute) exacerbation; I48.91 Unspecified atrial fibrillation; I49.5 Sick sinus syndrome; I11.0 Hypertensive heart disease with heart failure; I50.32 Chronic diastolic (congestive) heart failure; I27.20 Pulmonary hypertension, unspecified; E78.5 Hyperlipidemia, unspecified; K21.9 Gastro-esophageal reflux disease without esophagitis; J98.4 Other disorders of lung; E87.0 Hyperosmolality and hypernatremia; E87.6 Hypokalemia; D69.6 Thrombocytopenia, unspecified; R10.9 Unspecified abdominal pain; E83.51 Hypocalcemia; Z79.01 Long term (current) use of anticoagulants; Z79.899 Other long term (current) drug therapy; Z91.013 Allergy to seafood; Z91.018 Allergy to other foods; Z88.5 Allergy status to narcotic agent; Z91.048 Other nonmedicinal substance allergy status; Z95.0 Presence of cardiac pacemaker
CPT/HCPCS: 36415; 71045; 74177; 80048; 80076; 82330; 82803; 83605; 83735; 83880; 84145; 85025; 85027; 87040; 87486; 87581; 87633; 87798; 93005; 93041; 93306; 94640; 94664; 94760; 96365; 96366; 96375; 96376; 97116; 97161; 97530; 99285; G0378; J1940; J3475; J7517; Q9967

== ENCOUNTER → 2024-07-22 | Outpatient (CLI) | payer OTHER, MEDICARE ==
[~2024-07-22] MED LIST changes: +ACET-683 PO; +MUCI600T31 PO; +OSEL75CA2 PO; +PREG25CA3 PO
== END ==
LOC: M CARPUL 14:44
PROVIDERS: ATTEND Internal Medicine Cardiovascular Disease
DX: I35.1 Nonrheumatic aortic (valve) insufficiency (principal); I71.21 Aneurysm of the ascending aorta, without rupture; I50.32 Chronic diastolic (congestive) heart failure; Z53.9 Procedure and treatment not carried out, unspecified reason

== ENCOUNTER → 2024-09-11 | Outpatient (CLI) | payer MEDICARE, OTHER | LOC: M RAD 13:07 | PROVIDERS: ATTEND Physician Assistant | DX: I50.32 Chronic diastolic (congestive) heart failure (principal) ==

== ENCOUNTER → 2024-10-08 | Outpatient (CLI) | payer MEDICARE, OTHER ==
[2024-10-08 11:28] LABS: CALCIUM LEVEL 9.9 MG/DL (8.3-10.6); CREATININE FOR GFR 1.3 MG/DL (0.70-1.30); GLOMERULAR FILTRATION RATE 56.6 (>42)
== END ==
LOC: M LAB 09:45
PROVIDERS: ATTEND Physician Assistant
DX: I50.32 Chronic diastolic (congestive) heart failure (principal)

== ENCOUNTER → 2024-12-25 | Outpatient (CLI) | payer OTHER ==
[~2024-12-25] MED LIST changes: -AMIO200T49; +AMIO200T54
[2024-12-25 08:18] LABS: BASO # 0.0 10^3/uL (0.0-0.2); BASO % 0.9 % (0.0-1.0); EOS # 0.2 10^3/uL (0.0-0.5); EOS % 4.4 % (0.0-3.0); LYMPH # 0.9 10^3/uL (1.5-5.0); LYMPH % 18.9 % (24.0-44.0); MONO # 0.5 10^3/uL (0.0-0.8); MONO % 11.6 % (2.0-8.0); NEUTROPHILS # 2.9 10^3/uL (1.5-8.5); NEUTROPHILS % 64.0 % (36.0-66.0); PLATELET COUNT, AUTOMATED 169 10^3/uL (150-450)
[2024-12-25 08:38] LABS: ALT/SGPT 18.0 U/L (7.0-40); AST/SGOT 20.0 U/L (<34); CALCIUM LEVEL 9.3 MG/DL (8.3-10.6); CARBON DIOXIDE LEVEL 29.0 MMOL/L (20-31); CHLORIDE LEVEL 107.0 MMOL/L (98-107); CHOLESTEROL LEVEL 131.0 MG/DL (<200); CHOLESTEROL RISK RATIO 2.13 (<5); CREATININE FOR GFR 1.1 MG/DL (0.70-1.30); DIGOXIN LEVEL 0.3 NG/ML (0.8-2.0); GLOMERULAR FILTRATION RATE 69.1 (>42); LDL CHOLESTEROL 58.3 MG/DL (<100); MAGNESIUM LEVEL 1.8 MG/DL (1.8-2.4); NON-HDL-C 69.7 MG/DL; POTASSIUM SERUM 4.4 MMOL/L (3.5-5.1); SODIUM LEVEL 146.0 MMOL/L (136-145); TRIGLYCERIDES LEVEL 57.0 MG/DL (<150)
[2024-12-25 08:40] LABS: FREE T4 1.14 NG/DL (0.89-1.76)
== END ==
LOC: M LAB 07:26 → EDSTATUS 12-26 10:20
PROVIDERS: ATTEND Physician Assistant
DX: I48.0 Paroxysmal atrial fibrillation (principal); I50.32 Chronic diastolic (congestive) heart failure; E78.5 Hyperlipidemia, unspecified

== ENCOUNTER → 2025-04-22 | Outpatient (CLI) | payer MEDICARE, OTHER ==
[~2025-04-22] MED LIST changes: +ACET-1515 PO; -ACET650T15 PO; -IBUP-1022 PO; +IBUP600T42 PO
== END ==
LOC: M WHC 10:07
PROVIDERS: ATTEND Nurse Practitioner Adult Health
DX: M81.0 Age-related osteoporosis without current pathological fracture (principal)

== ENCOUNTER 2025-04-30 11:30 | Emergency (ER) | payer OTHER, MEDICARE ==
[~2025-04-30] VITALS: Ht 172.7 cm; Wt 73.6 kg
[2025-04-30 14:09] LABS: BASO # 0.0 10^3/uL (0.0-0.2); BASO % 0.3 % (0.0-1.0); EOS # 0.1 10^3/uL (0.0-0.5); EOS % 0.9 % (0.0-3.0); LYMPH # 0.5 10^3/uL (1.5-5.0); LYMPH % 9.1 % (24.0-44.0); MONO # 0.8 10^3/uL (0.0-0.8); MONO % 13.3 % (2.0-8.0); NEUTROPHILS # 4.4 10^3/uL (1.5-8.5); NEUTROPHILS % 76.2 % (36.0-66.0); PLATELET COUNT, AUTOMATED 139 10^3/uL (150-450)
[2025-04-30] MEDS: NS 500 ML IV ONE (14:25)
[2025-04-30 14:31] LABS: INR 1.16
[2025-04-30 14:44] LABS: ALT/SGPT 20.0 U/L (7.0-40); AST/SGOT 23.0 U/L (<34); CALCIUM LEVEL 8.4 MG/DL (8.3-10.6); CARBON DIOXIDE LEVEL 22.0 MMOL/L (20-31); CHLORIDE LEVEL 105.0 MMOL/L (98-107); CREATININE FOR GFR 1.51 MG/DL (0.70-1.30); GLOMERULAR FILTRATION RATE 47.0 (>42); POTASSIUM SERUM 3.8 MMOL/L (3.5-5.1); SODIUM LEVEL 138.0 MMOL/L (136-145)
[2025-04-30 14:48] LABS: CK-MB VALUE MASS 1.1 NG/ML (<3.6)
[2025-04-30 14:50] LABS: CPK CREATINE PHOSPHOKINASE 45.0 U/L (46-171); DIGOXIN LEVEL 0.3 NG/ML (0.8-2.0); MB/CK RELATIVE INDEX 2.44 (< OR =4)
[2025-04-30 15:21] LABS: CK-MB VALUE MASS 1.0 NG/ML (<3.6)
[2025-04-30] MEDS ORDERED: ISOVUE-370 76% 100 ML VIAL As Ordered ONE (15:29)
[2025-04-30 15:41] LABS: CPK CREATINE PHOSPHOKINASE 64.0 U/L (46-171); MB/CK RELATIVE INDEX 1.56 (< OR =4)
[2025-04-30 15:49] LABS: KETONE, URINE AUTO RFX NEGATIVE (NEGATIVE); LEUKOCYTE ESTERASE UR AUTO RFX NEGATIVE (NEGATIVE); MUCUS, URINE RFX SMALL (NEGATIVE); NITRITE, URINE AUTO RFX NEGATIVE (NEGATIVE); RBC, URINE AUTO RFX 2 /HPF (0-3); SQUAM EPITHELIAL CELL UR AURFX 0 /HPF (0-6); WBC, URINE AUTO RFX 1 /HPF (0-3)
[2025-04-30 18:28] LABS: C REACTIVE PROTEIN QUANTITATIV 9.12 MG/DL (<1.0)
[2025-04-30] MEDS: PIPERACILLIN/TAZOBACTAM SOD 4.5 GM in DEXTROSE 5% (D5W) ADV/MINI-BAG 50 ML IV ONE (18:31)
[2025-04-30] MEDS ORDERED: DONE5TAB86 PO (18:37)
[2025-04-30] MEDS: AZITHROMYCIN INJ 500 MG, VIAL MATE ADAPTER 1 EACH in NS 250 ML IV ONE (20:15)
[2025-04-30] MEDS: ACETAMINOPHEN *IV* 1,000 MG in IV 1 EA IV ONE (20:15)
[2025-04-30] MEDS ORDERED: AZIT500T5 PO (21:15)
[2025-04-30 21:30] VITALS: BP 135/56; TEMP 98.1; O2SAT 97
== END 2025-04-30 21:55 | disposition home or self-care (01) ==
LOC: M ED 11:30
DX: A04.5 Campylobacter enteritis (principal); A04.72 Enterocolitis due to Clostridium difficile, not specified as recurrent; I70.0 Atherosclerosis of aorta; I10 Essential (primary) hypertension; E78.5 Hyperlipidemia, unspecified; K21.9 Gastro-esophageal reflux disease without esophagitis; K57.30 Diverticulosis of large intestine without perforation or abscess without bleeding; R51.9 Headache, unspecified; Z87.891 Personal history of nicotine dependence; Z88.5 Allergy status to narcotic agent; Z91.013 Allergy to seafood; Z91.018 Allergy to other foods; Z79.52 Long term (current) use of systemic steroids; Z79.01 Long term (current) use of anticoagulants; Z79.1 Long term (current) use of non-steroidal anti-inflammatories (NSAID); Z79.899 Other long term (current) drug therapy
CPT/HCPCS: 71045; 71275; 74174; 80047; 80048; 80076; 80162; 81001; 82150; 82550; 82553; 83605; 83690; 83880; 84145; 84484; 85025; 85610; 85652; 85730; 86140; 86850; 86900; 86901; 87324; 87486; 87507; 87581; 87633; 87798; 93005; 93041; 96361; 96365; 96366; 96367; 99285; J0134; J0456; J2543; Q9967